=== PATIENT | female | born 1935 | race Caucasian/White ===

== ENCOUNTER 2016-09-06 10:36 | Inpatient (IN) | payer MEDICARE ==
[~2016-09-06] VITALS: Ht 172.7 cm; Wt 117.1 kg
[2016-09-06] VITALS (11 sets, daily range): BP systolic 106–179; BP diastolic 68–108
[~2016-09-06 10:36] MED LIST: ANAS1TAB PO; ASPI81TA9 PO; DILT240C32 PO; HYDR12.58 PO; HYDR25TA9 PO; LISI-334 PO; METO50TA2 PO; PRED20TA PO
--- NOTE | 2016-09-06 11:28 | PHYS DOC ---
General Chief Complaint: SHORTNESS OF BREATH Stated Complaint: DIFFICULTY BREATHING Time Seen by MD: 11:24 Source: patient, old records Exam Limitations: no limitations Problems: History of Present Illness Initial Comments Pt is 81/F to ED c/o SOB. Pt states that this am 0930 while watching TV she experienced sudden onset SOB. Sx were persistent, worse with exertion, similar to prior sx afib RVR so pt came for eval. She also reports that she didn't sleep well last night, she "just didn't feel right." No cp/diaphoresis/n/v/arm or neck sx/dizziness. No prearrival treatment, home meds are cartia XT 240mg and ASA 81mg. ED VS: 97.8, 127, 20, 165/89, 95% RA echo 12/2015 Left ventricle systolic function is normal. The Ejection Fraction is estimated at 55-60%. There is normal LV segmental wall motion. Transmitral Doppler flow pattern is Grade I-abnormal relaxation pattern. Trace aortic regurgitation. Mild mitral regurgitation. Trace to mild tricuspid regurgitation. The PA pressure was estimated at 26 mmHg. There is no evidence of significant pericardial effusion. Timing/Duration: constant, other (0930 today) Severity: severe Modifying Factors: worse with movement, improves with rest Associated Symptoms: malaise, shortness of breath, weakness Allergies: Coded Allergies: codeine (Unverified Allergy, Intermediate, VERY SICK, 12/01/13) Past Medical History Medical History: hypertension, other (atrial fibrillation, CKD stage 3, HTN, obesity, DJD, breast cancer s/p mastectomy/radiation) Surgical History: other (mastectomy, hip replacement) Family History Significant Family History: no pertinent family hx Social History Smoker: non-smoker Alcohol: none Drugs: none Review of Systems Constitutional: denies chills, denies diaphoresis, denies fever, malaise Respiratory: denies cough, shortness of breathdenies wheezing Cardiovascular: denies chest pain, edema palpitationsdenies syncope Gastrointestinal: denies diarrhea, denies nausea, denies vomiting Musculoskeletal: denies back pain, denies joint swelling, denies neck pain Psychiatric/Neurological: denies headache, denies numbness, denies paresthesia Hematologic/Lymphatic: see HPI Physical Exam General Appearance: mild distress (conversational dyspnea), obese Eyes: bilateral eye EOMI, bilateral eye PERRL, bilateral eye normal inspection Ear, Nose, Throat: normal ENT inspection, normal pharynx Neck: non-tender, supple Respiratory: normal breath sounds, no respiratory distress Cardiovascular: normal peripheral pulses, tachycardia Gastrointestinal: non tender, soft Back: no CVA tenderness, no vertebral tenderness Extremities: non-tender, normal inspection (2+ pitting LE edema) 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 PHYSICIAN: JASBIR HANDY DO REASON: sob PROCEDURE: PORTABLE CHEST 1V Portable chest, 09/06/2016: History: Shortness of breath Comparison is made to a study from 04/23/2016. The heart is moderately enlarged. The pulmonary vascularity is normal. No pulmonary infiltrates a are seen. There is no evidence of pleural fluid. IMPRESSION: 1. Moderate cardiomegaly. 2. No acute abnormality is detected. DICTATED AND SIGNED BY: RHETT RM MD DATE: 09/06/16 1221 CC: JASBIR HANDY DO; MAXIMILIANO RAGLAND ~ 1235: Pt resting comfortably feels much better since rate controlled. Dr Carl accepts pt for inpt management, cardiology has been paged. 1258: Pt discussed with cardiology [place], requests carotid/LE dopplers and echo. Pertinent labs: BUN 19, Cr 1.3, Trop < .017, BNP 3330 IMPRESSIONS: Atrial fibrillation with RVR Departure Time of Disposition: 12:38 Disposition: ADMITTED INPATIENT Diagnosis: Afib with RVR, HTN Condition: IMPROVED Additional Instructions: ICU admission Dr Carl is accepting. JASBIR HANDY DO Sep 06, 2016 11:28
[2016-09-06] MEDS ORDERED: DILTIAZEM 125 MG in IV DEXTROSE 5% 100 ML IV ONE (11:45)
[2016-09-06] MEDS ORDERED: ASPIRIN 81 MG TAB.CHEW PO ONE (11:45)
[2016-09-06] MEDS ORDERED: DILTIAZEM 25 MG/5 ML VIAL IVP ONE (11:45)
[2016-09-06 11:56] LABS: BASO # 0.1 x10^3/uL (0.0-0.2); BASO % 1 % (0-3); EOS # 0.1 x10^3/uL (0.0-0.7); EOS % 1 % (0-3); LYMPH # 1.2 x10^3/uL (1.0-4.8); LYMPH % 15 % (24-48); MEAN CORPUSCULAR HEMOGLOBIN 29 pg (25-35); MEAN CORPUSCULAR HGB CONC 33 g/dL (31-37); MEAN CORPUSCULAR VOLUME 89 fL (79-100); MONO # 0.7 x10^3/uL (0.0-1.1); MONO % 8 % (0-9); NEUT # 6.2 x10^3uL (1.8-7.7); NEUT % 75 % (31-73); PLATELET COUNT 213 x10^3/uL (140-400); RED BLOOD COUNT 5.15 x10^6/uL (3.50-5.40); WHITE BLOOD COUNT 8.3 x10^3/uL (4.0-11.0)
[2016-09-06 12:16] LABS: ALBUMIN 3.9 g/dL (3.4-5.0); ALBUMIN/GLOBULIN RATIO 1.1 (1.0-1.7); CALCIUM 9.6 mg/dL (8.5-10.1); CREATININE 1.3 mg/dL (0.6-1.0); GFR 39.2; POTASSIUM 3.8 mmol/L (3.5-5.1); TOTAL BILIRUBIN 0.9 mg/dL (0.2-1.0); TOTAL PROTEIN 7.4 g/dL (6.4-8.2)
--- NOTE | 2016-09-06 12:26 | RAD ---
Portable chest, 09/06/2016: History: Shortness of breath Comparison is made to a study from 04/23/2016. The heart is moderately enlarged. The pulmonary vascularity is normal. No pulmonary infiltrates a are seen. There is no evidence of pleural fluid. IMPRESSION: 1. Moderate cardiomegaly. 2. No acute abnormality is detected.
[2016-09-06] MEDS ORDERED: ONDANSETRON PF 4 MG/2 ML VIAL. IV PRN (13:15)
--- NOTE | 2016-09-06 13:27 | EKG ---
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
--- NOTE | 2016-09-06 13:27 | EKG ---
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
--- NOTE | 2016-09-06 14:15 | NUR ---
Pt admitted from ER via cart to ICU bed 3 for a diagnosis of Afib RVR. Pts daughter at bedside. Pt denies complaints of pain A&OX3. Pt on a Cardizem gtt at 5mg/hr. Oriented pt to unit, nurse, call light, and plan of care. V/u Stated. A full history obtained and full assessment completed. Will monitor and address orders.
[2016-09-06] MEDS ORDERED: DILTIAZEM IV PRN (15:45)
[2016-09-06] MEDS ORDERED: DEXTROSE 5% IV PRN (15:45)
--- NOTE | 2016-09-06 16:05 | NUR ---
Codie COSTELLO for Dr. Person called. INformed her of pts status, including vital signs HR and BP. Clarified order for Carotid Dopplers and Venous Dopplers, she confirmed with MD to DC both of these orders. orders received. Cardiology will see pt in am.
--- NOTE | 2016-09-06 16:25 | HP ---
ADMIT DATE: 09/06/2016 HISTORY OF PRESENT ILLNESS: The patient is an 81-year-old female patient, who came to the Emergency Room complaining of shortness of breath. Her symptoms started this morning at 9:30, while watching TV she experienced sudden onset of shortness of breath. Her symptoms persisted worse with exertion, similar to prior episode of atrial fibrillation with rapid ventricular response, so she came to us for evaluation. She also said that she did not sleep well last night. She just did not feel right; however, she denied any chest pain, diaphoresis, nausea, vomiting, arm or neck pain. Denied any dizziness or lightheadedness. She used to be on Cartia 240 mg once a day and aspirin 81 mg once a day. On arrival to the Emergency Room, she was found to be in atrial fibrillation with rapid ventricular response. Her heart rate was 127. Her blood pressure was also high and she was given a bolus of Cardizem 30 mg and continued on a Cardizem drip and was admitted to ICU to continue with the Cardizem drip and to consult the cardiology team. PAST MEDICAL HISTORY: Significant for hypertension, previous episode of atrial fibrillation with rapid ventricular response. She has also history of breast cancer. She has also known to have chronic kidney disease. PAST SURGICAL HISTORY: Significant for left total hip arthroplasty with revision, left mastectomy and bilateral cataract extraction with intraocular lens implant. ALLERGIES: She is allergic to CODEINE. MEDICATIONS: She is on aspirin 81 mg once a day and diltiazem hydrochloride 240 mg once a day. FAMILY HISTORY: She has 4 brothers and 3 sisters. One of her sisters at the age of 54 because of cancer. Father in his 70s. Mother in her 40s. SOCIAL HISTORY: She is . Her son lives with her. She has 6 sons and 5 daughters. She has never smoked, does not drink alcohol. 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 REVIEW OF SYSTEMS: The patient denies any blurring of vision, cataract, glaucoma or macular degeneration. Denied any earache, tinnitus or sensorineural deafness. Denied any nosebleeds, stuffy nose or postnasal drip. Denied any sore throat, sore tongue, toothache, hoarseness of voice or difficulty swallowing. Denied any nausea, vomiting, diarrhea or constipation. Denied any hematemesis, melena or hematochezia. Denied any dysuria, frequency or hematuria. Denied any chest pain. Did complain of shortness of breath, denied any cough, phlegm or hemoptysis. Denied any chills, rigors or fever. PHYSICAL EXAMINATION: GENERAL: On arrival to the Emergency Room; the patient was pale, but no jaundice, cyanosis, or thyromegaly. No jugular venous distention. No limb edema. VITAL SIGNS: Her heart rate was 127, blood pressure was 163/89, temperature was 97.8, respiratory rate 20, and oxygen saturation was 95% on room air. HEAD, EYES, EARS, NOSE AND THROAT: Showed normocephalic, atraumatic. NECK: Supple. HEART: Showed normal first and second heart sounds with no gallop, rub or murmur. CHEST: Clear to auscultation. No crepitation or rhonchi. ABDOMEN: Distended, soft, nontender. No guarding or rigidity. No organomegaly. All hernial orifices intact. Bowel sounds normal. NEUROLOGIC: She was awake, alert, responding appropriately. Cranial nerves intact. EXTREMITIES: She moves extremities without difficulty. She ambulates with a walker. LABORATORY DATA: Her lab work this morning showed a white cell count of 8300, hemoglobin 15, hematocrit 46, MCV 89 and platelet count 213,000 with normal manual differential. Her chemistry showed a serum sodium 145, potassium 3.8, chloride 108, bicarbonate 27, anion gap of 10, BUN 19, creatinine 1.3, estimated GFR was 39 mL per minute. Her glucose 135, calcium was 9.6, magnesium 2. Total bilirubin, AST, ALT, alkaline phosphatase were normal. Her beta natriuretic peptide was high at 3330, total protein 7.4, albumin 3.9. Her prothrombin time was 10.6, INR 1, aPTT was 26. Her chest x-ray showed the heart is moderately enlarged. Pulmonary vascularity is normal. No pulmonary infiltrates are seen. There is no evidence of pleural fluid. ASSESSMENT AND PLAN: In summary, this is an 81-year-old female patient, who came yet again with another episode of atrial fibrillation with rapid ventricular response. She was given a bolus of Cardizem 30 mg in the Emergency Room, was started on Cardizem drip to titrate to maintain heart rate within 80 to 90 beats per minute. We will consult the Cardiology team check two more sets of cardiac enzyme as well as fasting lipid profile. LAURIE GUTIERREZ MD DR: OZZIE/tom JOB#: [id number] / [id number]
[2016-09-06] MEDS: METOPROLOL TART IMMED RELEASE 25 MG TABLET PO SCH ×2 (16:37→21:00)
--- NOTE | 2016-09-06 18:47 | ACF ---
Admission Criteria Forms ATRIAL FIBRILLATION Clinical Indications for Admission to Inpatient Care (Place 'X' for any and all applicable criteria): Admission indicated for ANY ONE of the following(1)(2)(3)(4)(5) : [ ]I. Myocardial ischemia [X ]II. Dyspnea or hypoxemia [ ]III. Hemodynamic instability [ ]IV. Heart failure (e.g., pulmonary edema) (7) [ ]V. New-onset (less than 48 hours) atrial fibrillation with high risk for causing complications secondary to comorbidities (eg, symptomatic heart failure ) [ ]. Altered mental status [ ]VII. Syncope [ ]VIII. Patient has implantable cardioverter defibrillator that has fired more than once within past 24hr or needs immediate adjustment of settings that cannot be done other than in inpatient setting. (8) [ ]IX. Suspected accessory pathway (e.g., Phdyh-Ftuzlydga-Hrled syndrome) on ECG [ ]X. Recent systemic thromboembolism (eg, stroke) [ ]XI. Medication toxicity (e.g., digitalis) causing arrhythmia(9) [ ]XII. Underlying medical condition that necessitates inpatient care (e.g., thyrotoxicosis, pneumonia) (10) [ ]XIII. Continuous ECG monitoring is required for condition causing arrhythmia (e.g., severe hyperkalemia, hypokalemia, acid-base disturbance).(11)(12)(13) [ ]XIV. Initiation of antiarrhythmic drug therapy is needed in patient at high risk of adverse effects as indicated by ANY ONE of the following: [ ]a) Significant structural heart disease (e.g., reduced ejection fraction, congenital heart disease, valvular heart disease) [ ]b) Prolonged QT interval [ ]c) Underlying sinus node or atrioventricular conduction disturbances [ ]d) Need for treatment with antiarrhythmic drugs that have significant proarrhythmic potential (e.g., dofetilide, sotalol, procainamide) [ ]e) Patient whose sinus rhythm has never been observed on ECG [ ]XV. Intolerable symptoms despite optimal outpatient treatment [ ]XVI. Elective or urgent cardioversion that cannot be performed on outpatient basis or during observation care. [A] (Use also Atrial Fibrillation: Observation Care ) as appropriate.(14) [ ]XVII.Contraindications and/or Inappropriate clinical situations for Observational Care in patients with Atrial Fibrillation, when ANY ONE of the following is required: [ ]a) Patient with High risk of cardiac embolism (e.g, patients with previous cardiac embolism, LVEF < 40%, age >75 and patients with prosthetic valve) 18 [ ]b) Patient with Moderate risk including DM patient, CAD and patient aged 65-75 18 [ ]c) Patient with any change in cardiac biomarker especially troponin should be managed as high risk in an inpatient setting 19 [ ]d) Physician judgement irrespective of ECG and other diagnostic findings 20 [ ]XVIII.General contraindications and/or Inappropriate clinical situations for Observational Care in patients with Atrial Fibrillation, when ANY ONE of the following is required: [ ]a) Prediction of prolongation of LOS based on ANY ONE of the following may be considered as a contraindication for observational care 2, 3, 4, 5, 6, 7, 8, 9, 10, 11 [ ]i) Age > 65 yrs. [ ]ii) Patient arriving by ambulance [ ]iii) Patient with high acuity [ ]iv) Patient requiring vital sign monitoring [ ]v) Patient on IV medication [ ]b) Systolic blood pressures 180mmHg 3,12 [ ]c) Patient with altered mental status including delirium and other alteration of consciousness3 [ ]d) Patient whose discharge disposition will be to a long term home or rehabilitation home should not be managed in Emergency Department Observation Unit. CMS rule requires 3 days hospital stay before such placement.3,13 [ ]e) Patient with failure to thrive due to broad array of etiologies 3,16,17 [ ]f) Inability to ambulate 3,14 Extended stay beyond goal length of stay may be needed for (1)(25)(26): [ ]a) Unstable comorbidities [ ]b) Persistently uncontrolled atrial fibrillation or other arrhythmias [ ]c) Acute thromboembolic event (e.g., stroke, limb ischemia) [ ]d) Need for inpatient attainment of full anticoagulation The original [employer] content created by [employer] has been revised. The portions of the content which have been revised are identified through the use of italic text or in bold, and [facility] has neither reviewed nor approved the modified material. All other unmodified content is copyright [employer]. Please see references footnoted in the original [facility] edition 2016 Admission Criteria Met?: Yes JANENE MULLIGAN Sep 06, 2016 18:47
[2016-09-06] MEDS: ENOXAPARIN ** NOTE DOSE ** SYRINGE SQ SCH (20:51)
[2016-09-06 21:17] LABS: BACTERIA,URINE MANY /HPF (0-FEW); BILIRUBIN,URINE NEG (NEG); CLARITY,URINE CLOUDY; COLOR,URINE YELLOW; GLUCOSE,URINE NEG (NEG); NITRITE,URINE POS (NEG); SQUAMOUS EPITHELIAL CELL,UR MANY /LPF; UROBILINOGEN,URINE 2 mg/dL (0.2 mg/dL)
[2016-09-06] MEDS ORDERED: DILTIAZEM 125 MG in IV DEXTROSE 5% 100 ML IV PRN (22:56)
[2016-09-07] VITALS (16 sets, daily range): BP systolic 114–141; BP diastolic 68–88
[2016-09-07 06:44] LABS: BASO # 0.1 x10^3/uL (0.0-0.2); BASO % 1 % (0-3); EOS # 0.2 x10^3/uL (0.0-0.7); EOS % 3 % (0-3); HEMATOCRIT 40.6 % (36.0-47.0); HEMOGLOBIN 13.3 g/dL (12.0-15.5); LYMPH # 1.9 x10^3/uL (1.0-4.8); LYMPH % 23 % (24-48); MEAN CORPUSCULAR HEMOGLOBIN 29 pg (25-35); MEAN CORPUSCULAR HGB CONC 33 g/dL (31-37); MEAN CORPUSCULAR VOLUME 88 fL (79-100); MONO # 0.8 x10^3/uL (0.0-1.1); MONO % 10 % (0-9); NEUT # 5.2 x10^3uL (1.8-7.7); NEUT % 63 % (31-73); PLATELET COUNT 205 x10^3/uL (140-400); RED CELL DISTRIBUTION WIDTH 14.2 % (11.5-14.5); WHITE BLOOD COUNT 8.2 x10^3/uL (4.0-11.0)
[2016-09-07 06:55] LABS: CALCIUM 9.3 mg/dL (8.5-10.1); CREATININE 1.2 mg/dL (0.6-1.0); POTASSIUM 3.7 mmol/L (3.5-5.1)
--- NOTE | 2016-09-07 07:35 | NUR ---
PT still in afib this am. Pt is able to verbalize understanding fo poc. PT is on 5mg of cardizem IV. Rajan Clolado RN
[2016-09-07] MEDS: ENOXAPARIN ** NOTE DOSE ** SYRINGE SQ SCH (07:53)
[2016-09-07] MEDS: METOPROLOL TART IMMED RELEASE 25 MG TABLET PO SCH ×2 (07:54→21:12)
--- NOTE | 2016-09-07 08:48 | PDOC2 ---
FLAKITA DE LEON CHILD SUPPORT OFFICER 09/07/16 0848: CONSULT Date of Admission DATE: 09/07/16 TIME: 08:38 Reason for Consult: afib History of Present Illness The patient is an 80-year-old woman who presented to the hospital in the setting of sudden onset shortness of breath and palpitations. She was found to be in atrial fibrillation with RVR. She was admitted in Apr 2016 with atrial fibrillation and reports her symptoms are the same. She was discharged with aspirin and cardizem in April and is presumably on the same medications though she says she is unable to remember. She is currently in atrial fibrillation with controlled ventricular response. She currently remains on cardizem IV. At baseline, she remains a NYHA functional class 2-3. She is able to do most activities of daily living without any significant limitations, but does require some help with bathing, grocery shopping as well as other activities around the house. She uses a walker to ambulate around the house. She denies any instability or falls, however. She denies any chest pain, dyspnea, congestive symptoms such as orthopnea, PND or significant lower extremity edema. She does report some swelling at the end of the night, improved in the am. She denies any other complaints currently. Her son/ daughter are at bedside and denies any other issues. Past Medical History Past Medical History echo 12/2015 Left ventricle systolic function is normal. The Ejection Fraction is estimated at 55-60%. There is normal LV segmental wall motion. Transmitral Doppler flow pattern is Grade I-abnormal relaxation pattern. Trace aortic regurgitation. Mild mitral regurgitation. Trace to mild tricuspid regurgitation. The PA pressure was estimated at 26 mmHg. There is no evidence of significant pericardial effusion. PAST MEDICAL HISTORY: 1. Hypertension. 2. Breast cancer status post radiation. 3. Obesity. 4. Palpitations / paroxysmal atrial fibrillation 5. degenerative joint disease Past Surgical History Past Surgical History mastectomy, joint replacement, cataract surgery with lens implant Family History Family History non contributory Social History Social History The patient lives with her son. Denies any excessive alcohol use. Denies any smoking. She enjoys going to the [employer] [place]. Current Medications Current Medications Diltiazem HCl/ Dextrose (Cardizem) 125 ml @ 0 mls/hr 1X ONCE IV Last administered on 09/06/16t 12:06; Start 09/06/16 at 11:45; Stop 09/06/16 at 11:46 ; Status DC Diltiazem HCl (Cardizem) 30 mg 1X ONCE IVP Last administered on 09/06/16 12: 03; Start 09/06/16 at 11:45; Stop 09/06/16 at 11:46; Status DC Aspirin (Children'S Aspirin) 324 mg 1X ONCE PO Last administered on 09/06/16 11:43; Start 09/06/16 at 11:45; Stop 09/06/16 at 11:46; Status DC Ondansetron HCl (Zofran) 4 mg PRN Q4HRS PRN IV NAUSEA/VOMITING; Start 09/06/16 at 13:15; Stop 09/07/16 at 13:14 Enoxaparin Sodium 120 mg 120 mg Q12HR SQ Last administered on 09/07/16 07:53; Start 09/06/16 at 21:00 Diltiazem HCl/ Dextrose (Cardizem) 100 ml @ 0 mls/hr CONT PRN IV SEE I/O RECORD ; Start 09/06/16 at 15:45; Stop 09/06/16 at 22:56; Status DC Metoprolol Tartrate 25 mg 25 mg BID PO Last administered on 09/07/16 07:54; Start 09/06/16 at 16:30 Diltiazem HCl/ Dextrose (Cardizem) 125 ml @ 0 mls/hr CONT PRN IV SEE I/O RECORD ; Start 09/06/16 at 22:56 Active Scripts Active Diltiazem 24HR Cd (Diltiazem Hcl) 240 Mg Cap.er.24h 240 Mg PO DAILY Aspirin Ec (Aspirin) 81 Mg Tablet.dr 81 Mg PO DAILYWBKFT Allergies: Coded Allergies: codeine (Unverified Allergy, Intermediate, VERY SICK, 12/01/13) Review of System as per HPI or negative General: Alert, Oriented X3, Cooperative, No acute distress HEENT: Atraumatic, Mucous membr. moist/pink Lungs: Clear to auscultation Heart: Other (irregular rate and rhythm without gallops, clicks or rubs) Abdomen: Normal bowel sounds, Soft Extremities: No cyanosis, Normal pulses, Other (trace edema) Neuro: Normal speech, Strength at 5/5 X4 ext Psych/Mental Status: Mental status NL, Mood NL VITALS Vital Signs Date Time Temp Pulse Resp B/P Pulse Ox O2 Delivery O2 Flow Rate FiO2 09/07/16 08:00 76 22 136/80 94 Room Air 09/07/16 03:10 98.1 Labs Laboratory Tests Test 09/06/16 11:43 09/06/16 14:15 09/06/16 15:35 09/06/16 16:15 White Blood Count 8.3x10^3/uL (4.0-11.0) Red Blood Count 5.15x10^6/uL (3.50-5.40) Hemoglobin 15.0g/dL (12.0-15.5) Hematocrit 46.0% (36.0-47.0) Mean Corpuscular Volume 89fL (79-100) Mean Corpuscular Hemoglobin 29pg (25-35) Mean Corpuscular Hemoglobin Concent 33g/dL (31-37) Red Cell Distribution Width 14.0% (11.5-14.5) Platelet Count 213x10^3/uL (140-400) Neutrophils (%) (Auto) 75% (31-73) Lymphocytes (%) (Auto) 15% (24-48) Monocytes (%) (Auto) 8% (0-9) Eosinophils (%) (Auto) 1% (0-3) Basophils (%) (Auto) 1% (0-3) Neutrophils # (Auto) 6.2x10^3uL (1.8-7.7) Lymphocytes # (Auto) 1.2x10^3/uL (1.0-4.8) Monocytes # (Auto) 0.7x10^3/uL (0.0-1.1) Eosinophils # (Auto) 0.1x10^3/uL (0.0-0.7) Basophils # (Auto) 0.1x10^3/uL (0.0-0.2) Prothrombin Time 10.6SEC (9.4-11.4) Prothromb Time International Ratio 1.0 (0.9-1.1) Activated Partial Thromboplast Time 26SEC (23-33) Sodium Level 145mmol/L (136-145) Potassium Level 3.8mmol/L (3.5-5.1) Chloride Level 108mmol/L (98-107) Carbon Dioxide Level 27mmol/L (21-32) Anion Gap 10 (6-14) Blood Urea Nitrogen 19mg/dL (7-20) Creatinine 1.3mg/dL (0.6-1.0) Estimated GFR (Cockcroft-Gault) 39.2 BUN/Creatinine Ratio 15 (6-20) Glucose Level 135mg/dL (70-99) Calcium Level 9.6mg/dL (8.5-10.1) Magnesium Level 2.0mg/dL (1.8-2.4) Total Bilirubin 0.9mg/dL (0.2-1.0) Aspartate Amino Transf (AST/SGOT) 14U/L (15-37) Alanine Aminotransferase (ALT/SGPT) 21U/L (14-59) Alkaline Phosphatase 91U/L (46-116) Creatine Kinase 35U/L (26-192) Troponin I Quantitative < 0.017ng/mL (0-0.055) < 0.017ng/mL (0-0.055) GJ-Vjv-P-Type Natriuretic Peptide 3330pg/mL (0-449) Total Protein 7.4g/dL (6.4-8.2) Albumin 3.9g/dL (3.4-5.0) Albumin/Globulin Ratio 1.1 (1.0-1.7) Nasal Screen MRSA (PCR) Negative (Negative) Urine Collection Type Unknown Urine Color Yellow Urine Clarity Cloudy Urine pH 7.0 Urine Specific [place] 1.020 Urine Protein Trace (NEG-TRACE) Urine Glucose (UA) Negmg/dL (NEG) Urine Ketones (Stick) Negmg/dL (NEG) Urine Blood Trace (NEG) Urine Nitrite Pos (NEG) Urine Bilirubin Neg (NEG) Urine Urobilinogen Dipstick 2mg/dL (0.2 mg/dL) Urine Leukocyte Esterase Neg (NEG) Urine RBC 3-5/HPF (0-2) Urine WBC 1-4/HPF (0-4) Urine Squamous Epithelial Cells Many/LPF Urine Bacteria Many/HPF (0-FEW) Test 09/06/16 19:51 09/07/16 05:42 Troponin I Quantitative < 0.017ng/mL (0-0.055) White Blood Count 8.2x10^3/uL (4.0-11.0) Red Blood Count 4.60x10^6/uL (3.50-5.40) Hemoglobin 13.3g/dL (12.0-15.5) Hematocrit 40.6% (36.0-47.0) Mean Corpuscular Volume 88fL (79-100) Mean Corpuscular Hemoglobin 29pg (25-35) Mean Corpuscular Hemoglobin Concent 33g/dL (31-37) Red Cell Distribution Width 14.2% (11.5-14.5) Platelet Count 205x10^3/uL (140-400) Neutrophils (%) (Auto) 63% (31-73) Lymphocytes (%) (Auto) 23% (24-48) Monocytes (%) (Auto) 10% (0-9) Eosinophils (%) (Auto) 3% (0-3) Basophils (%) (Auto) 1% (0-3) Neutrophils # (Auto) 5.2x10^3uL (1.8-7.7) Lymphocytes # (Auto) 1.9x10^3/uL (1.0-4.8) Monocytes # (Auto) 0.8x10^3/uL (0.0-1.1) Eosinophils # (Auto) 0.2x10^3/uL (0.0-0.7) Basophils # (Auto) 0.1x10^3/uL (0.0-0.2) Sodium Level 146mmol/L (136-145) Potassium Level 3.7mmol/L (3.5-5.1) Chloride Level 110mmol/L (98-107) Carbon Dioxide Level 27mmol/L (21-32) Anion Gap 9 (6-14) Blood Urea Nitrogen 19mg/dL (7-20) Creatinine 1.2mg/dL (0.6-1.0) Estimated GFR (Cockcroft-Gault) 43.0 Glucose Level 94mg/dL (70-99) Calcium Level 9.3mg/dL (8.5-10.1) Images EKG - 1. atrial fibrillation with RVR, RBBB, LAFB, non specific changes 2. atrial fibrillation with CVR, RBBB, LAFB CXR - IMPRESSION: 1. Moderate cardiomegaly. 2. No acute abnormality is detected. Assessment/Plan 1. atrial fibrillation with RVR - now controlled response. MCOT worn for short period in Nov revealed 99% atrial burden. [id number] =4. Suggest change cardizem to oral, continue beta kentrell, await echo. PT eval for fall risk and add eliquis. OP follow up in 4-6 week for further evaluation. 2. hypertension - controlled on current meds 3. renal insufficiency, mild and stable. Problems: BRIA BENNETT MD 09/07/16 6047: CONSULT Allergies: Coded Allergies: codeine (Unverified Allergy, Intermediate, VERY SICK, 12/01/13) Assessment/Plan Patient seen and examined The patient is feeling better. Atrial fibrillation. Initially rapid ventricular response now controlled. Beta blockers as above. Will consider patient a candidate for anticoagulation with Eliquis. Echocardiogram pending. Outpatient follow-up 2 weeks post discharge. Controlled hypertension. Mild renal insufficiency. Thank you for allowing us to participate in the care of your patient. Problems: FLAKITA DE LEON APRN Sep 07, 2016 08:48 BRIA BENNETT MD Sep 07, 2016 16:47
[2016-09-07] MEDS: DILTIAZEM HCL 240 MG CAP.ER.24H PO SCH (09:53)
--- NOTE | 2016-09-07 11:15 | CARD ---
APPROVED REPORT EXAM: Two-dimensional and M-mode echocardiogram with Doppler and color Doppler. Other Information Quality : Technically Limited Technically limited study due to body habitus. INDICATION Atrial Fibrillation 2D DIMENSIONS RVDd3.1 (2.9-3.5cm)Left Atrium(2D)4.8 (1.6-4.0cm) IVSd1.3 (0.7-1.1cm)Aortic Root(2D)3.0 (2.0-3.7cm) LVDd5.1 (3.9-5.9cm)PWd1.2 (0.7-1.1cm) LVDs4.4 (2.5-4.0cm)FS (%) 25.0 % SV36.9 mlLVEF(%)50.0 (>50%) Aortic Valve AoV Peak Cb.103.0cm/sAoV VTI16.9cm AO Peak GR.4.2mmHgAO Mean GR.2mmHg RUBY (VTI)2.33cm2 Mitral Valve MV E Sbkwvjex80.4cm/sMV DECEL [id number] Tricuspid Valve TR P. Npycivsf328hc/sRAP [id number] TR Peak Gr.93ruYwFMQT77snBy LEFT VENTRICLE The left ventricle is normal size. There is mild concentric left ventricular hypertrophy. Left ventri tom systolic function is low normal. The Ejection Fraction is 50-55%. Wall motion not well visualized due to suboptimal image quality but grossly within normal limits. Tissue Doppler imaging reveals mod erate left ventricular diastolic dysfunction. RIGHT VENTRICLE The right ventricle is normal size. The right ventricular systolic function is normal. ATRIA The left atrium is moderately dilated. The right atrium size is normal. The interatrial septum is int act with no evidence for an atrial septal defect or patent foramen ovale as noted on 2-D or Doppler i maging. AORTIC VALVE The aortic valve is not well visualized. Doppler and Color Flow revealed no significant aortic regurg itation. There is no significant aortic valvular stenosis. MITRAL VALVE The mitral valve is normal in structure and function. There is no evidence of mitral valve prolapse. There is no mitral valve stenosis. Doppler and Color-flow revealed trace to mild mitral regurgitation . TRICUSPID VALVE The tricuspid valve is normal in structure and function. Doppler and Color Flow revealed trace tricus pid regurgitation. There is mild pulmonary hypertension. The PA pressure was estimated at 37 mmHg. Th ere is no tricuspid valve stenosis. PULMONIC VALVE Doppler and Color Flow revealed trace pulmonic valvular regurgitation. There is no pulmonic valvular stenosis. GREAT VESSELS The aortic root is normal in size. The ascending aorta is normal in size. The IVC is normal but colla pses <50% with inspiration. PERICARDIAL EFFUSION There is no evidence of significant pericardial effusion. Critical Notification Critical Value: No <Conclusion> Left ventricle systolic function is low normal. The Ejection Fraction is 50-55%. Wall motion not well visualized due to suboptimal image quality but grossly within normal limits. Tissue Doppler imaging reveals moderate left ventricular diastolic dysfunction. The left atrium is moderately dilated. The IVC is normal but collapses <50% with inspiration, suggestive of volume overload.
[2016-09-07] MEDS: APIXABAN 5 MG TABLET. PO SCH (14:14)
[2016-09-07] MEDS ORDERED: APIXABAN 5 MG TABLET. PO ONE (14:14)
[2016-09-07] MEDS ORDERED: ACETAMINOPHEN 325 MG TABLET PO PRN (14:15)
[2016-09-07] MEDS ORDERED: TEMAZEPAM 15 MG CAPSULE PO PRN (18:00)
[2016-09-07 18:56] LABS: BILIRUBIN,URINE NEG (NEG); CLARITY,URINE CLOUDY; COLOR,URINE AMBER; GLUCOSE,URINE NEG (NEG)
[2016-09-07 18:57] LABS: NITRITE,URINE POS (NEG); UROBILINOGEN,URINE 1 mg/dL (0.2 mg/dL)
[2016-09-07 19:01] LABS: BACTERIA,URINE MANY /HPF (0-FEW); RBC,URINE 0 /HPF (0-2); SQUAMOUS EPITHELIAL CELL,UR MANY /LPF
[2016-09-08] VITALS (9 sets, daily range): BP systolic 107–134; BP diastolic 59–88
--- NOTE | 2016-09-08 04:30 | PN ---
DATE: 09/07/2016 SUBJECTIVE: The patient was admitted yesterday with an episode of paroxysmal atrial fibrillation with rapid ventricular response. She was started on Cardizem drip and her heart rate was well controlled. She was switched to Diltiazem 240 mg once a day. She was started also on apixaban as well as metoprolol and we were planned for her to be discharged home. Unfortunately, she had had short runs of V-tach, consultation with the Cardiology team, they recommended for her to stay overnight for further observation. When I examined her, the patient was asymptomatic during the short periods of nonsustained ventricular tachycardia. PHYSICAL EXAMINATION: GENERAL: When I examined her, she looked well and was clearly in no apparent respiratory distress. She was pale, no jaundice, cyanosis, or thyromegaly. No jugular venous distension. No limb edema. VITAL SIGNS: Her heart rate was 80, blood pressure was 131/81, temperature was 98.2, respiratory rate 22, and oxygen saturation was 95%. HEAD, EYES, EARS, NOSE AND THROAT: Normocephalic, atraumatic. NECK: Supple. HEART: Showed normal first and second heart sounds with no gallop, rub or murmur. CHEST: Clear to auscultation. No crepitation or rhonchi. ABDOMEN: Distended, soft, nontender. No guarding or rigidity. No organomegaly. Hernial orifices intact. Bowel sounds normal. NEUROLOGIC: She is awake, alert, responding appropriately. Cranial nerves intact. She moves extremities without difficulty. She ambulates without assistance or assistive devices. LABORATORY DATA: Her lab work this morning showed that her white cell count was 98,200, hemoglobin 13, hematocrit 40, MCV 88 and platelet count of 205,000. Her chemistry showed serum sodium of , potassium 3.7, chloride 110, bicarbonate 27, anion gap of 9, BUN 19, creatinine 1.2, estimated GFR was 43 mL per minute. Her glucose was 94, calcium was 9.3. As of yesterday, her magnesium was 2. ASSESSMENT: Paroxysmal atrial fibrillation that responded very well to calcium channel kentrell as well as beta-kentrell; hypertension, well controlled; and mild chronic renal insufficiency. The patient has also history of breast cancer, status post mastectomy; morbid obesity; and degenerative joint disease. PLAN: We will continue with all her current medication and if she remains stable with no further episodes of nonsustained ventricular tachycardia, she can be discharged home. LAURIE GUTIERREZ MD DR: OZZIE/tom JOB#: [id number] / [id number]
[2016-09-08 06:08] LABS: CALCIUM 9.3 mg/dL (8.5-10.1); CREATININE 1.3 mg/dL (0.6-1.0); GFR 39.2; MAGNESIUM 1.9 mg/dL (1.8-2.4); POTASSIUM 3.8 mmol/L (3.5-5.1)
[2016-09-08] MEDS: APIXABAN 5 MG TABLET. PO SCH (08:39)
[2016-09-08] MEDS: DILTIAZEM HCL 240 MG CAP.ER.24H PO SCH (08:39)
[2016-09-08] MEDS: METOPROLOL TART IMMED RELEASE 25 MG TABLET PO SCH (08:39)
[2016-09-08] MEDS ORDERED: METO25TA9 PO (08:53)
[2016-09-08] MEDS ORDERED: DILT240C2 PO (08:54)
[2016-09-08] MEDS ORDERED: APIX5TAB PO (08:55)
--- NOTE | 2016-09-08 10:04 | NUR ---
Discharge Note: JODY COELLO [facility] Discharge instructions and discharge home medications reviewed with Patient, daughter, and son, and a copy given. All questions have been answered and understanding verbalized. The following instructions and handouts were given: EDUCATION regarding metoprolol, cardizem, eliquis, afib, and discharge instructions Discontinued lines and drains: Peripheral IV intact. Patient discharged to Home or Self Care with Family Member via Wheelchair Pt given instructions regarding new medications including side effects, complications, etc. Prescriptions for eliquid, metoprolol, and cardizem given to pt. Pt's daughter took all of pt belongings. Pt instructed to call unit if she has any questions regarding her new medications. Pt and daughter verbalized understanding of discharge instructions.
== END 2016-09-08 09:45 | disposition home or self-care (01) | DRG 310 ==
LOC: ER 10:36 → ICU 13:50
PROVIDERS: ADMIT Internal Medicine; ATTEND Internal Medicine
DX: I48.0 Paroxysmal atrial fibrillation (principal); I12.9 Hypertensive chronic kidney disease with stage 1 through stage 4 chronic kidney disease, or unspecified chronic kidney disease; I34.0 Nonrheumatic mitral (valve) insufficiency; N18.3 Chronic kidney disease, stage 3 (moderate); Z96.1 Presence of intraocular lens; Z96.642 Presence of left artificial hip joint; E66.01 Morbid (severe) obesity due to excess calories; M19.90 Unspecified osteoarthritis, unspecified site; Z79.82 Long term (current) use of aspirin; Z85.3 Personal history of malignant neoplasm of breast; Z90.10 Acquired absence of unspecified breast and nipple; Z92.3 Personal history of irradiation; Z98.41 Cataract extraction status, right eye; Z98.42 Cataract extraction status, left eye; Z68.39 Body mass index [BMI] 39.0-39.9, adult; Z88.5 Allergy status to narcotic agent
CPT/HCPCS: 36415; 71010; 80048; 80053; 81001; 82550; 83735; 83880; 84443; 84484; 85027; 85610; 85730; 87086; 87186; 87641; 93005; 93306; 96365; J1650; J3490; 99285-25

== ENCOUNTER → 2017-05-29 | Outpatient (CLI) | payer MEDICARE, BC ==
[2016-09-08 08:39] VITALS: BP 134/76
[~2017-05-29] MED LIST changes: +APIX5TAB3 PO; +ASPI-612 PO; -ASPI81TA9 PO; +DILT240C2 PO; +METO-239 PO; -METO50TA2 PO; +METO50TA6 PO
[2017-05-29 16:37] LABS: BASO # 0.1 x10^3/uL (0.0-0.2); BASO % 1 % (0-3); EOS # 0.2 x10^3/uL (0.0-0.7); EOS % 2 % (0-3); HEMATOCRIT 46.4 % (36.0-47.0); HEMOGLOBIN 15.7 g/dL (12.0-15.5); LYMPH # 1.9 x10^3/uL (1.0-4.8); LYMPH % 21 % (24-48); MEAN CORPUSCULAR HEMOGLOBIN 30 pg (25-35); MEAN CORPUSCULAR HGB CONC 34 g/dL (31-37); MEAN CORPUSCULAR VOLUME 89 fL (79-100); MONO # 0.9 x10^3/uL (0.0-1.1); MONO % 10 % (0-9); NEUT # 5.9 x10^3uL (1.8-7.7); NEUT % 66 % (31-73); PLATELET COUNT 265 x10^3/uL (140-400); RED BLOOD COUNT 5.21 x10^6/uL (3.50-5.40); WHITE BLOOD COUNT 9.1 x10^3/uL (4.0-11.0)
[2017-05-29 16:47] LABS: ALBUMIN 3.7 g/dL (3.4-5.0); ALBUMIN/GLOBULIN RATIO 0.9 (1.0-1.7); CALCIUM 9.7 mg/dL (8.5-10.1); CREATININE 1.5 mg/dL (0.6-1.0); GFR 33.2; POTASSIUM 3.7 mmol/L (3.5-5.1); TOTAL BILIRUBIN 0.5 mg/dL (0.2-1.0); TOTAL PROTEIN 7.6 g/dL (6.4-8.2)
== END | disposition home or self-care (01) ==
LOC: PMG 14:58
PROVIDERS: ATTEND Internal Medicine Cardiovascular Disease
DX: I48.91 Unspecified atrial fibrillation (principal); I12.9 Hypertensive chronic kidney disease with stage 1 through stage 4 chronic kidney disease, or unspecified chronic kidney disease; N18.3 Chronic kidney disease, stage 3 (moderate)
CPT/HCPCS: 36415; 80053; 85025

== ENCOUNTER 2017-07-05 08:49 | Emergency (ER) | payer MEDICARE, BC ==
[~2017-07-05] VITALS: Ht 170.2 cm; Wt 122.0 kg
[2017-07-05] MEDS: methylPREDNISolone SOD SUCC PF 125 MG/2 ML VIAL. IV ONE (09:39)
[2017-07-05 09:43] LABS: BASO # 0.1 x10^3/uL (0.0-0.2); BASO % 1 % (0-3); EOS # 0.2 x10^3/uL (0.0-0.7); EOS % 2 % (0-3); HEMATOCRIT 46.1 % (36.0-47.0); HEMOGLOBIN 15.7 g/dL (12.0-15.5); LYMPH # 1.4 x10^3/uL (1.0-4.8); LYMPH % 15 % (24-48); MEAN CORPUSCULAR HEMOGLOBIN 30 pg (25-35); MEAN CORPUSCULAR HGB CONC 34 g/dL (31-37); MEAN CORPUSCULAR VOLUME 89 fL (79-100); MONO # 0.8 x10^3/uL (0.0-1.1); MONO % 8 % (0-9); NEUT # 6.9 x10^3uL (1.8-7.7); NEUT % 74 % (31-73); PLATELET COUNT 265 x10^3/uL (140-400); RED BLOOD COUNT 5.16 x10^6/uL (3.50-5.40); RED CELL DISTRIBUTION WIDTH 13.2 % (11.5-14.5); WHITE BLOOD COUNT 9.3 x10^3/uL (4.0-11.0)
[2017-07-05] MEDS: IPRATRPIUM/ALBUTEROL 0.5/2.5MG 3 ML NEBU. NEB ONE (09:43)
--- NOTE | 2017-07-05 09:44 | EKG ---
[address] [address] Test Date: 2017-07-05 Test Time: 09:40:25 Pat Name: SHON COELLO Department: Room: Gender: F Copy Messenger: : [phone] Requested By: STEPHANIE SHIRLEY Order Number: [id number] Reading MD: Honorio Person MD Measurements Intervals [place] Rate: 49 P: MA: QRS: -88 QRSD: 118 T: -79 QT: 482 QTc: 434 Interpretive Statements atrial fibrillation rbbb NON-SPECIFIC ST/T CHANGES Electronically Signed On 07-09-2017 17:09:27 PRODUCTION ASSEMBLY OPERATOR by Honorio Person MD
[2017-07-05] MEDS: 0.9 % SODIUM CHLORIDE 10 ML DISP.SYRIN. IV ONE (09:45)
--- NOTE | 2017-07-05 10:03 | PHYS DOC ---
Past History Past Medical History: A-Fib, Hypertension Past Surgical History: Hip Replacement Smoking: Non-smoker Alcohol Use: None Drug Use: None Adult General Chief Complaint Chief Complaint: COUGH HPI HPI 82-year-old nonsmoking female patient complaining of productive cough with yellow sputum and shortness of breath and left lower chest wall pain during episodes of cough for the last 2 weeks with feeling cold without fever. Patient rated her pain 2/10 and states she was not able to sleep last night because of the cough appears. Patient complaining of diarrhea with 2 episodes of loose stool the day for the last 3 days. Patient complaining of generalized weakness and decrease of appetite. Patient had sick contacts at home. Patient states she was seen by her primary care physician couple days ago and had unremarkable labs and chest x-ray and started on amoxicillin without improvement of her condition. Review of Systems Review of Systems Constitutional: Denies fever , reports chills and generalized weakness Eyes: Denies change in visual acuity, redness, or eye pain [] HENT: Reports nasal congestion and sore throat [] Respiratory: Reports cough and shortness of breath [] Cardiovascular: No additional information not addressed in HPI [] GI: Denies abdominal pain, nausea, vomiting, bloody stools reports diarrhea : Denies dysuria or hematuria [] Musculoskeletal: Denies back pain or joint pain [] Integument: Denies rash or skin lesions [] Neurologic: Denies headache, focal weakness or sensory changes [] Endocrine: Denies polyuria or polydipsia [] All other systems were reviewed and found to be within normal limits, except as documented in this note. Current Medications Current Medications Current Medications Medications (Trade) Dose Ordered Sig/Parveen Start Time Stop Time Status Last Admin Dose Admin Albuterol/ Ipratropium (Duoneb) 3 ml 1X ONCE 07/05/17 09:45 07/05/17 09:46 DC 07/05/17 09:43 3 ML Methylprednisolone Sodium Succinate (SOLU-Medrol 125MG VIAL) 125 mg 1X ONCE 07/05/17 09:45 07/05/17 09:46 DC 07/05/17 09:39 125 MG Sodium Chloride (Normal Saline Flush) 10 ml 1X ONCE 07/05/17 09:45 07/05/17 09:46 DC Allergies Allergies Allergies Coded Allergies Type Severity Reaction Last Updated Verified codeine Allergy Intermediate VERY SICK 12/01/13 No Physical Exam Physical Exam Constitutional: Mild distress, non-toxic appearance. [] HENT: Normocephalic, atraumatic, bilateral external ears normal, oropharynx moist, no oral exudates, nose normal. [] Eyes: PERRLA, EOMI, conjunctiva normal, no discharge. [] Neck: Normal range of motion, no tenderness, supple, no stridor. [] Cardiovascular: Irregularly irregular, no murmur [] Lungs & Thorax: Mild wheezing and rhonchi bilaterally, no respiratory distress Abdomen: Bowel sounds normal, soft, no tenderness, no masses, no pulsatile masses. [] Skin: Warm, dry, no erythema, no rash. [] Back: No tenderness, no CVA tenderness. [] Extremities: No tenderness, no cyanosis, no clubbing, ROM intact, trace edema. [ ] Neurologic: Alert and oriented X 3, normal motor function, normal sensory function, no focal deficits noted. [] Psychologic: Affect normal, judgement normal, mood normal. [] Current Patient Data Vital Signs Vital Signs Date Time Temp Pulse Resp B/P (MAP) Pulse Ox O2 Delivery O2 Flow Rate FiO2 07/05/17 09:35 99 Nasal Cannula Lab Results Laboratory Tests Test 07/05/17 09:30 White Blood Count 9.3 x10^3/uL (4.0-11.0) Red Blood Count 5.16 x10^6/uL (3.50-5.40) Hemoglobin 15.7 g/dL (12.0-15.5) H Hematocrit 46.1 % (36.0-47.0) Mean Corpuscular Volume 89 fL (79-100) Mean Corpuscular Hemoglobin 30 pg (25-35) Mean Corpuscular Hemoglobin Concent 34 g/dL (31-37) Red Cell Distribution Width 13.2 % (11.5-14.5) Platelet Count 265 x10^3/uL (140-400) Neutrophils (%) (Auto) 74 % (31-73) H Lymphocytes (%) (Auto) 15 % (24-48) L Monocytes (%) (Auto) 8 % (0-9) Eosinophils (%) (Auto) 2 % (0-3) Basophils (%) (Auto) 1 % (0-3) Neutrophils # (Auto) 6.9 x10^3uL (1.8-7.7) Lymphocytes # (Auto) 1.4 x10^3/uL (1.0-4.8) Monocytes # (Auto) 0.8 x10^3/uL (0.0-1.1) Eosinophils # (Auto) 0.2 x10^3/uL (0.0-0.7) Basophils # (Auto) 0.1 x10^3/uL (0.0-0.2) EKG EKG [EKG interpreted by me. EKG at 0940 showed atrial fibrillation at rate of 49, left axis deviation, LVH, no acute ST and T wave abnormality] Radiology/Procedures Radiology/Procedures Cardiomegaly without infiltration[] Course & Med Decision Making Course & Med Decision Making Pertinent Labs and Imaging studies reviewed. (See chart for details) Evaluation of patient in ER showed 82-year-old female patient with complaining of cough and congestion and not feeling good for 2 weeks that did not get better with amoxicillin and Tessalon given by primary care physician. Patient had mild rhonchi and wheezing and felt better with treatment in ER. Patient had chronic renal insufficiency and atrial fibrillation with elevation of BNP without previous BNP to compare. Patient also had UTI and there treated with Rocephin in ER. Plan to give prescription of Bactrim and Medrol Dosepak and albuterol inhaler and Tussionex and instruction to stop taking Tessalon pain and amoxicillin. Potassium was 3.3 and patient instructed to take high potassium food. Dragon Disclaimer Dragon Disclaimer This electronic medical record was generated, in whole or in part, using a voice recognition dictation system. Departure Departure: Impression: Primary Impression: Upper respiratory infection Additional Impressions: Urinary tract infection Chronic atrial fibrillation Chronic renal insufficiency Congestive heart failure Hypokalemia Disposition: HOME, SELF-CARE (At 1127) Condition: IMPROVED Referrals: MAXIMILIANO RAGLAND (PCP) Patient Instructions: Heart Failure, Hypokalemia, Upper Respiratory Infection, Adult, Urinary Tract Infection Additional Instructions: Follow-up with your primary care physician in 2 or 3 days Take high potassium food Return if not getting better Stop taking home medication of amoxicillin and Tessalon gunnar Scripts Hydrocodone/Chlorphen P-Stirex (Tussionex Pennkinetic Susp) 115 Ml Haley.er.12h 5 ML PO BID Y for COUGH, #120 ML Prov: STEPHANIE SHIRLEY MD 07/05/17 Methylprednisolone (MEDROL) 4 Mg Tab.ds.pk 1 PKG PO UD, #1 PKG Prov: STEPHANIE SHIRLEY MD 07/05/17 Sulfamethoxazole/Trimethoprim (BACTRIM DS TABLET) 1 Each Tablet 1 TAB PO BID, #14 TAB Prov: STEPHANIE SHIRLEY MD 07/05/17 Albuterol Sulfate (PROAIR HFA INHALER) 8.5 Gm Hfa.aer.ad 2 PUFF INH PRN Q6HRS Y for SHORTNESS OF BREATH, #1 INHALER 0 Refills Prov: STEPHANIE SHIRLEY MD 07/05/17 Problem Qualifiers STEPHANIE SHIRLEY MD Jul 05, 2017 10:02
[2017-07-05 10:08] LABS: ALBUMIN 3.4 g/dL (3.4-5.0); ALBUMIN/GLOBULIN RATIO 0.9 (1.0-1.7); ALK PHOS 66 U/L (46-116); ALT (SGPT) 17 U/L (14-59); ANION GAP 9 (6-14); AST (SGOT) 15 U/L (15-37); BLOOD UREA NITROGEN 24 mg/dL (7-20); BUN/CREATININE RATIO 15 (6-20); CALCIUM 9.3 mg/dL (8.5-10.1); CARBON DIOXIDE 31 mmol/L (21-32); CHLORIDE 102 mmol/L (98-107); CREATINE KINASE 38 U/L (26-192); CREATININE 1.6 mg/dL (0.6-1.0); GFR 30.8; GLUCOSE 147 mg/dL (70-99); POTASSIUM 3.3 mmol/L (3.5-5.1); SODIUM 142 mmol/L (136-145); TOTAL BILIRUBIN 0.7 mg/dL (0.2-1.0); TOTAL PROTEIN 7.1 g/dL (6.4-8.2)
[2017-07-05 10:38] LABS: AMORPHOUS SEDIMENT,UR PRESENT /HPF; BACTERIA,URINE MANY /HPF (0-FEW); BILIRUBIN,URINE MOD (NEG); CLARITY,URINE CLOUDY; COLOR,URINE AMBER; GLUCOSE,URINE NEG (NEG); NITRITE,URINE POS (NEG); RBC,URINE RARE /HPF (0-2); SQUAMOUS EPITHELIAL CELL,UR MOD /LPF; UROBILINOGEN,URINE 1 mg/dL (0.2 mg/dL)
[2017-07-05] MEDS: cefTRIAXone IV Push 1 GM VIAL. IVP ONE (11:07)
[2017-07-05] MEDS ORDERED: HYDR115S2 PO (11:31)
[2017-07-05] MEDS ORDERED: SULF1TAB24 PO (11:31)
[2017-07-05] MEDS ORDERED: METH4TAB2 PO (11:31)
[2017-07-05] MEDS ORDERED: ALBU8.5H8 INH (11:31)
--- NOTE | 2017-07-05 15:24 | RAD ---
Portable chest, 07/05/2017: History: Cough Comparison is made to a study from 09/06/2016. The heart is enlarged. There is calcific plaquing of the aorta. The pulmonary vascularity is normal. No pulmonary infiltrates are seen. There is no evidence of pleural fluid. Degenerative changes are present the shoulders. IMPRESSION: 1. Cardiomegaly. 2. No acute cardiopulmonary abnormality is detected.
[2017-07-05 18:00] VITALS: BP 156/69
== END 2017-07-05 11:25 | disposition home or self-care (01) ==
LOC: ER 08:49
DX: J06.9 Acute upper respiratory infection, unspecified (principal); N39.0 Urinary tract infection, site not specified; I48.2 Chronic atrial fibrillation; I13.0 Hypertensive heart and chronic kidney disease with heart failure and stage 1 through stage 4 chronic kidney disease, or unspecified chronic kidney disease; N18.9 Chronic kidney disease, unspecified; I50.9 Heart failure, unspecified; E87.6 Hypokalemia; Z88.5 Allergy status to narcotic agent
CPT/HCPCS: 36415; 71045; 80053; 81001; 82553; 83880; 84484; 85025; 87086; 93005; 94640; 96374; 96375; 99285; J0696; J2930; J7620

== ENCOUNTER 2017-08-11 09:28 | Inpatient (IN) | payer MEDICARE, BC ==
[~2017-08-11] VITALS: Ht 170.2 cm; Wt 118.5 kg
[~2017-08-11 09:28] MED LIST changes: +ALBU8.5H8 INH; +HYDR115S2 PO; +METH4TAB2 PO; +SULF1TAB24 PO
--- NOTE | 2017-08-11 09:43 | PHYS DOC ---
Past History Past Medical History: A-Fib, Cancer, Hypertension Past Surgical History: Hip Replacement Smoking: Non-smoker Alcohol Use: None Drug Use: None Adult General Chief Complaint Chief Complaint: COUGH HPI HPI 82-year-old female patient with history of atrial fibrillation and CHF brought in by EMS because of cough. Patient states she has had chronic cough more than 2 months and seen by her primary care physician in this emergency room and treated with different antibiotics without improvement of her cough and complaining of productive cough with yellow sputum. Patient complaining of one episode of exertional shortness of breath this morning that lasts for a short time and resolved spontaneously. Patient also complaining of lower extremity edema for the last 4 days and seen by her primary care physician and treated with Lasix with improvement of edema but the pain is not getting better and has limited 14 because of leg edema. Patient complaining of chronic chills without fever, vomiting, dizziness, chest pain, palpitation, focal neuro deficit. Patient has history of atrial fibrillation and taking Eliquis. Review of Systems Review of Systems Constitutional: Denies fever, reports chills [] Eyes: Denies change in visual acuity, redness, or eye pain [] HENT: Denies nasal congestion or sore throat [] Respiratory: Reports cough and shortness of breath [] Cardiovascular: No additional information not addressed in HPI [] GI: Denies abdominal pain, vomiting, bloody stools or diarrhea, reports nausea[ ] : Denies dysuria or hematuria [] Musculoskeletal: Denies back pain, reports joint pain [] Integument: Denies rash or skin lesions [] Neurologic: Denies headache, focal weakness or sensory changes [] Endocrine: Denies polyuria or polydipsia [] All other systems were reviewed and found to be within normal limits, except as documented in this note. Allergies Allergies Allergies Coded Allergies Type Severity Reaction Last Updated Verified codeine Allergy Intermediate VERY SICK 12/01/13 No Physical Exam Physical Exam Constitutional: Well developed, well nourished, mild distress, non-toxic appearance. [] HENT: Normocephalic, atraumatic, bilateral external ears normal, oropharynx moist, no oral exudates, nose normal. [] Eyes: PERRLA, EOMI, conjunctiva normal, no discharge. [] Neck: Normal range of motion, no tenderness, supple, no stridor. [] Cardiovascular: Irregularly irregular heartbeat with tachycardia , no murmur [] Lungs & Thorax: Bilateral breath sounds clear to auscultation [] Abdomen: Bowel sounds normal, soft, no tenderness, no masses, no pulsatile masses. [] Skin: Warm, dry, no erythema, no rash. [] Back: No tenderness, no CVA tenderness. [] Extremities: No tenderness, no cyanosis, no clubbing, ROM intact, 1+ bilateral lower extremity edema edema. [] Neurologic: Alert and oriented X 3, normal motor function, normal sensory function, no focal deficits noted. [] Psychologic: Affect normal, judgement normal, mood normal. [] EKG EKG EKG interpreted by me. EKG at 0 942 showed atrial fibrillation at rate of 104 with RVR, PVCs, abnormal right superior axis deviation, right bundle branch block, RVH with repolarization, no acute distress and T-wave elevation[] Radiology/Procedures Radiology/Procedures [] [address] [address] IMAGING REPORT Signed PATIENT: JODY COELLO ACCOUNT: [id number] : 1935 LOCATION: ER AGE: 82 SEX: F EXAM STATUS: REG ER ORD. PHYSICIAN: STEPHANIE SHIRLEY MD REASON: shortness of breath PROCEDURE: PORTABLE CHEST 1V Portable AP view CXR: Clinical indications: Cough with shortness of breath. Comparison: December 03, 2017. Findings: No acute lung infiltrate or pleural effusion or pulmonary edema or lung mass or pneumothorax is seen. The heart size is prominent but stable. The pulmonary vasculature, mediastinum and both yandel are stable. Impression: No acute radiographic abnormality is seen. DICTATED AND SIGNED BY: YOLANDA JONES MD DATE: 08/11/17 1030 CC: STEPHANIE SHIRLEY MD; MAXIMILIANO RAGLAND Course & Med Decision Making Course & Med Decision Making Pertinent Labs and Imaging studies reviewed. (See chart for details) Evaluation of patient in ER showed 81-year-old female patient with complaining of an episode of shortness of breath today and chronic cough for 2 months and lower extremity edema for 4 days. Had atrial fibrillation with RVR and treated with Lopressor 5 mg IV(Cardizem was not used because of shortage of Cardizem bolus and IV) and her heart rate dropped to 80s. Patient had potassium of 2.6 and IV potassium was started. Patient had elevation of white count and lactic acid was started. UA is pending. Plan to admit patient with diagnosis of atrial fibrillation and RVR and CHF and hyperkalemia. Dr Carl informed at 1044 and accepted admission. Patient and her family informed about plan of care. UA and lower extremity ultrasound results is pending . Dragon Disclaimer Dragon Disclaimer This electronic medical record was generated, in whole or in part, using a voice recognition dictation system. Departure Departure: Impression: Primary Impression: Atrial fibrillation with RVR Additional Impressions: Hypokalemia Renal insufficiency Chronic cough CHF (congestive heart failure) Edema extremities Disposition: ADMITTED INPATIENT (At 1045) Admitting Physician: Nabil Carl Referrals: MAXIMILIANO RAGLAND (PCP) Problem Qualifiers STEPHANIE SHIRLEY MD Aug 11, 2017 09:43
[2017-08-11] MEDS ORDERED: METOPROLOL TARTRATE 5 MG/5 ML VIAL. IV ONE (10:00)
[2017-08-11 10:12] LABS: BASO # 0.1 x10^3/uL (0.0-0.2); BASO % 1 % (0-3); EOS % 0 % (0-3); HEMATOCRIT 44.7 % (36.0-47.0); HEMOGLOBIN 15.2 g/dL (12.0-15.5); LYMPH # 1.1 x10^3/uL (1.0-4.8); LYMPH % 8 % (24-48); MEAN CORPUSCULAR HEMOGLOBIN 30 pg (25-35); MEAN CORPUSCULAR HGB CONC 34 g/dL (31-37); MEAN CORPUSCULAR VOLUME 88 fL (79-100); MONO # 1.5 x10^3/uL (0.0-1.1); MONO % 10 % (0-9); NEUT % 82 % (31-73); PLATELET COUNT 322 x10^3/uL (140-400); RED BLOOD COUNT 5.06 x10^6/uL (3.50-5.40); RED CELL DISTRIBUTION WIDTH 13.1 % (11.5-14.5); WHITE BLOOD COUNT 14.7 x10^3/uL (4.0-11.0)
[2017-08-11 10:31] LABS: ALBUMIN 3.3 g/dL (3.4-5.0); ALBUMIN/GLOBULIN RATIO 0.8 (1.0-1.7); ALK PHOS 62 U/L (46-116); ALT (SGPT) 15 U/L (14-59); ANION GAP 6 (6-14); AST (SGOT) 15 U/L (15-37); BLOOD UREA NITROGEN 29 mg/dL (7-20); BUN/CREATININE RATIO 19 (6-20); CALCIUM 9.4 mg/dL (8.5-10.1); CARBON DIOXIDE 36 mmol/L (21-32); CHLORIDE 96 mmol/L (98-107); CREATININE 1.5 mg/dL (0.6-1.0); GFR 33.2; GLUCOSE 136 mg/dL (70-99); MAGNESIUM 1.8 mg/dL (1.8-2.4); SODIUM 138 mmol/L (136-145); TOTAL BILIRUBIN 1.7 mg/dL (0.2-1.0); TOTAL PROTEIN 7.2 g/dL (6.4-8.2)
[2017-08-11 10:32] LABS: POTASSIUM 2.6 mmol/L (3.5-5.1)
--- NOTE | 2017-08-11 10:33 | RAD ---
Portable AP view CXR: Clinical indications: Cough with shortness of breath. Comparison: December 03, 2017. Findings: No acute lung infiltrate or pleural effusion or pulmonary edema or lung mass or pneumothorax is seen. The heart size is prominent but stable. The pulmonary vasculature, mediastinum and both yandel are stable. Impression: No acute radiographic abnormality is seen.
--- NOTE | 2017-08-11 10:43 | EKG ---
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
[2017-08-11] MEDS ORDERED: POTASSIUM CHLORIDE 20MEQ 100 ML IV ONE (10:45)
--- NOTE | 2017-08-11 11:57 | RAD ---
Right leg venous Doppler study: Clinical indications: Right leg swelling and pain. Findings: Duplex sonography (including sanchez scale evaluation and color flow and waveform spectral analysis) of the proximal aspect of the greater saphenous vein and proximal aspect of the profunda femoral vein and the entire length of the common femoral and superficial femoral and popliteal veins and the tibioperoneal trunk and the proximal aspect of the posterior tibial and peroneal veins of the right leg was performed. Normal compressibility, augmentation of color Doppler flow after calf compression, and respiratory variation of Doppler flow is seen. Thus, there are no sonographic findings of deep venous thrombosis within these veins. Impression: There are no sonographic findings of deep venous thrombosis within the veins discussed above of the right lower extremity. Left leg venous Doppler study: Clinical indications: Left leg swelling and pain. Findings: Duplex sonography (including sanchez scale evaluation and color flow and waveform spectral analysis) of the proximal aspect of the greater saphenous vein and the proximal aspect of the profunda femoral vein and the entire length of the common femoral and superficial femoral and popliteal veins and the tibioperoneal trunk and the proximal aspect of the posterior tibial and peroneal veins of the left leg was performed. Normal compressibility, augmentation of color Doppler flow after calf compression, and respiratory variation of Doppler flow is seen. Thus, there are no sonographic findings of deep venous thrombosis within these veins. Impression: There are no sonographic findings of deep venous thrombosis within the veins discussed above of the left lower extremity.
[2017-08-11 12:05] LABS: BACTERIA,URINE MANY /HPF (0-FEW); BILIRUBIN,URINE NEG (NEG); CLARITY,URINE HAZY; COLOR,URINE AMBER; GLUCOSE,URINE NEG (NEG); NITRITE,URINE POS (NEG); RBC,URINE RARE /HPF (0-2); SQUAMOUS EPITHELIAL CELL,UR MOD /LPF; UROBILINOGEN,URINE 2 mg/dL (0.2 mg/dL)
[2017-08-11 12:13] VITALS: BP 125/83
[2017-08-11] MEDS ORDERED: METO25TA4 PO (12:19)
[2017-08-11] MEDS ORDERED: FURO20TA3 PO (12:19)
[2017-08-11] MEDS ORDERED: DILT240C66 PO (12:19)
[2017-08-11] MEDS ORDERED: POTA10TA10 PO (12:19)
[2017-08-11] MEDS ORDERED: HYDR50TA6 PO (12:19)
[2017-08-11] MEDS ORDERED: POTASSIUM CHLORIDE 20 MEQ/15 ML ORAL LIQUID. PO ONE ×3 (12:30→15:30)
--- NOTE | 2017-08-11 12:50 | NUR ---
Pt Viki Oneal admitted to room 125 with complaints of leg pain, SOA and cough. Pt is in AFib with frequent PVCs. Family at bedside with patient. Bed is low and locked. C/o pain in LE. Pt alert and oriented but forgetful. Will continue to monitor.
[2017-08-11] MEDS: POTASSIUM CHLORIDE 20 MEQ/15 ML ORAL LIQUID. PO ONE ×2 (13:30→14:00)
[2017-08-11 14:42] VITALS: BP 97/75
[2017-08-11] MEDS ORDERED: ALBUTEROL SULFATE 2.5 MG/3 ML NEBU. NEB PRN (15:30)
--- NOTE | 2017-08-11 15:39 | NUR ---
Cardiology consult called into [facility] cardiology to Susu. Dr Joel wind farm operations manager.
[2017-08-11] MEDS: cefTRIAXone IV Push 1 GM VIAL. IVP SCH (16:14)
[2017-08-11 16:18] LABS: HEMATOCRIT 42.2 % (36.0-47.0); HEMOGLOBIN 14.3 g/dL (12.0-15.5); RED BLOOD COUNT 4.74 x10^6/uL (3.50-5.40); WHITE BLOOD COUNT 14.1 x10^3/uL (4.0-11.0)
[2017-08-11 16:31] LABS: ALBUMIN 3.1 g/dL (3.4-5.0); ALBUMIN/GLOBULIN RATIO 0.8 (1.0-1.7); CALCIUM 9.1 mg/dL (8.5-10.1); CREATININE 1.5 mg/dL (0.6-1.0); GFR 33.2; POTASSIUM 3.9 mmol/L (3.5-5.1); TOTAL BILIRUBIN 1.4 mg/dL (0.2-1.0); TOTAL PROTEIN 6.9 g/dL (6.4-8.2)
--- NOTE | 2017-08-11 16:53 | HP ---
ADMIT DATE: 08/11/2017 HISTORY OF PRESENT ILLNESS: The patient is an 82-year-old female patient who came to the Emergency Room basically complaining of cough. She said that her cough has been going on for more than 2 months now, seen by her primary care physician. She has received treatment with different antibiotic without improvement. The cough has recently become productive with yellow sputum. She also had one episode of exertional shortness of breath this morning that lasted for a short time and resolved spontaneously. She was complaining of lower extremity edema for the last 4 days and seen by her primary care physician, treated with Lasix with improvement of her swelling, but the pain is not getting any better, has limited her mobility. The patient also did complain of chronic chills without fever, vomit. Denied, however, any chest pain. She was evaluated in the Emergency Room and was found to have leukocytosis and severe hypokalemia and her D-dimer was slightly elevated also. She has had a chest x-ray, which showed no acute radiographic abnormality seen and because of elevated D-dimer, she has showed that there are no sonographic findings of deep vein thrombosis within the veins, both right and lower extremity. The patient was admitted with atrial fibrillation with rapid ventricular response, hypokalemia, renal insufficiency, chronic cough, congestive heart failure and lower extremity edema. PAST MEDICAL HISTORY: Significant for hypertension, atrial fibrillation with rapid ventricular response. She has a history of breast cancer and known to have chronic kidney disease. PAST SURGICAL HISTORY: Significant for left total hip arthroplasty with revision, left mastectomy and bilateral cataract extraction with intraocular lens implant. ALLERGIES: She is allergic to CODEINE. MEDICATIONS: She is currently on following medications: She is on apixaban 5 mg twice a day, diltiazem for Cartia XT 240 mg twice a day, furosemide 20 mg once a day, hydrochlorothiazide 25 mg daily, metoprolol tartrate 25 mg twice a day, potassium chloride 10 mEq daily. FAMILY HISTORY: She has 4 brothers and 3 sisters, one of her sisters at the age of 54 because of cancer. Father in his 70s and mother in her 40s. SOCIAL HISTORY: She is . Her son lives with her. She has 6 sons and 5 daughters. She has never smoked, does not drink alcohol. 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 REVIEW OF SYSTEMS: The patient denied any blurring vision, has bilateral cataract extraction but denied any glaucoma or macular degeneration. Denied any earache, tinnitus or sensorineural deafness. Denied any nosebleeds, stuffy nose or postnasal drip. Denied any sore throat, sore tongue, toothache, hoarseness of voice or difficulty swallowing. Denied any nausea, vomiting, diarrhea or constipation. Denied any hematemesis, melena or hematochezia. Denied any dysuria, frequency or hematuria. She denied any chest pain. Did complain of shortness of breath, cough with yellow sputum. Did complain of chills, but denied any rigors or fever. PHYSICAL EXAMINATION: GENERAL: On arrival to the Emergency Room, the patient looked well and was clearly in no apparent respiratory distress, slightly pale, but no jaundice, cyanosis, or thyromegaly. No jugular venous distension. No limb edema. VITAL SIGNS: Her heart rate was 108, irregularly irregular; blood pressure 126/61; temperature was 99.3; respiratory rate was 18 and oxygen saturation was 97% on room air. HEAD, EYES, EARS, NOSE AND THROAT: Showed normocephalic, atraumatic. NECK: Supple. HEART: Showed normal first and second heart sounds. No gallop, rub or murmur. CHEST: Clear to auscultation. No crepitation or rhonchi. ABDOMEN: Distended, soft, nontender. No guarding or rigidity. No organomegaly. All hernial orifices intact. Bowel sounds normal. NEUROLOGIC: She was awake, alert, responding appropriately. Cranial nerves intact. She moves extremities without difficulty. She apparently ambulates with a walker. She requires assistance with bathing at home; however, she managed to dress and undress on her own and makes her own breakfast. Her son basically assists to do shopping and cooking. Her daughter also assists with that. LABORATORY DATA AND IMAGING: In the Emergency Room showed that her white cell count was 14,700, hemoglobin 15.2, hematocrit 45, MCV 88 and platelet count 322,000. The manual differential showed 82% polymorphs, 8% lymphocytes, 10% monocytes. Her prothrombin time was 11.1, INR 1.1. D-dimer was 0.53. Her serum sodium was 138, potassium 2.6, chloride 96, bicarbonate 36, anion gap of 6, BUN 29, creatinine 1.5, estimated GFR was ____ mL per minute. Her glucose 136, calcium was 9.4, magnesium was 1.8. Total bilirubin is 1.7. AST, ALT, alkaline phosphatase were normal. Her beta natriuretic peptide was 1491. Total protein was 7.2, albumin 3.3. Her first set of cardiac enzymes showed troponin to be less than 0.017. Urinalysis showed the urine was hazy, martínez in color with a pH of 6.5, specific gravity of 1.020. There is trace of protein, negative for glucose, ketones, blood is positive for nitrite. The urine was negative for bilirubin and leukocyte esterase. There are rare RBCs, 5-10 WBCs, too many bacteria. Her chest x-ray showed that no acute lung infiltrate or pleural effusion, no pulmonary edema or lung mass or pneumothorax is seen. The heart size is prominent, but stable. Pulmonary vascularity, vasculature, mediastinum and both yandel are stable with no acute radiographic abnormalities seen. Given his slightly elevated D-dimer, she underwent venous Doppler ultrasound of both lower extremities, which basically showed no sonographic finding of deep vein thrombosis within the veins of the right and left lower extremity. The patient was admitted with atrial fibrillation with rapid ventricular response, although in reality, her heart rate really not seemed to be reasonably controlled. She has hypokalemia, likely due to the fact that she is on both Lasix and hydrochlorothiazide with very little potassium supplement. She has chronic renal insufficiency that seems to be chronic and she has chronic cough that has been going on for almost 2 months now. She is not on any JOSE D inhibitors that might be contributing to this. She does not seem to be at least clinically and radiologically in congestive heart failure, although she carries that diagnosis before. She apparently has swelling of both extremities and that is why she is on both diuretics and that resulted in severe hypokalemia. She has also what seems to be probably urinary tract infection as he has too many bacteria in her urine with positive nitrite. PLAN: My plan is to replenish her potassium. I wonder whether she has any treatment with inhalers and perhaps proton pump inhibitors ____ the cause of her chronic cough. I will definitely consult the health information manager to see her if she might require an echocardiogram to evaluate her left ventricular systolic function. LAURIE GUTIERREZ MD DR: OZZIE/tom JOB#: [id number] / [id number]
[2017-08-11] MEDS ORDERED: POTASSIUM CHLORIDE 20 MEQ TABLET.ER. PO SCH (17:30)
[2017-08-11 19:49] VITALS: BP 149/79
[2017-08-11] MEDS: LACTOBACILLUS RHAMNOSUS GG 1 CAPSULE. PO SCH (20:01)
[2017-08-11] MEDS: APIXABAN 5 MG TABLET. PO SCH (20:02)
[2017-08-11] MEDS: BUDESONIDE 0.5 MG/2 ML NEBU NEB SCH (20:29)
[2017-08-11] MEDS ORDERED: METOPROLOL TART IMMED RELEASE 25 MG TABLET PO SCH (21:00)
[2017-08-11 23:00] VITALS: BP 86/54
[2017-08-12 06:28] VITALS: BP 102/66
[2017-08-12 06:32] LABS: BASO # 0.1 x10^3/uL (0.0-0.2); BASO % 1 % (0-3); EOS # 0.1 x10^3/uL (0.0-0.7); EOS % 1 % (0-3); HEMATOCRIT 42.6 % (36.0-47.0); HEMOGLOBIN 13.8 g/dL (12.0-15.5); LYMPH % 17 % (24-48); MEAN CORPUSCULAR HEMOGLOBIN 30 pg (25-35); MEAN CORPUSCULAR HGB CONC 33 g/dL (31-37); MEAN CORPUSCULAR VOLUME 92 fL (79-100); MONO # 1.3 x10^3/uL (0.0-1.1); MONO % 12 % (0-9); NEUT # 8.1 x10^3uL (1.8-7.7); NEUT % 70 % (31-73); PLATELET COUNT 273 x10^3/uL (140-400); RED BLOOD COUNT 4.66 x10^6/uL (3.50-5.40); RED CELL DISTRIBUTION WIDTH 12.7 % (11.5-14.5); WHITE BLOOD COUNT 11.6 x10^3/uL (4.0-11.0)
[2017-08-12 06:39] LABS: ALBUMIN 2.8 g/dL (3.4-5.0); ALBUMIN/GLOBULIN RATIO 0.8 (1.0-1.7); CALCIUM 9.1 mg/dL (8.5-10.1); CREATININE 1.3 mg/dL (0.6-1.0); GFR 39.1; TOTAL BILIRUBIN 1.4 mg/dL (0.2-1.0); TOTAL PROTEIN 6.3 g/dL (6.4-8.2)
[2017-08-12 06:42] LABS: POTASSIUM 2.9 mmol/L (3.5-5.1)
--- NOTE | 2017-08-12 09:13 | PDOC2 ---
FLAKITA DE LEON GEOTHERMAL OPERATIONS ENGINEER 08/12/17 0913: CONSULT Date of Admission DATE: 08/12/17 TIME: 08:54 Reason for Consult: atrial fibrillation with RVR Problem List Problems Medical Problems: (1) Atrial fibrillation with RVR Status: Acute (2) CHF (congestive heart failure) Status: Acute (3) Chronic cough Status: Acute (4) Edema extremities Status: Acute (5) Hypokalemia Status: Acute (6) Renal insufficiency Status: Acute History of Present Illness History of Present Illness The patient is an 80-year-old woman who presented to the hospital in the setting of bilateral ankle and foot pain, sudden onset shortness of breath and palpitations. She was found to be in atrial fibrillation with RVR. IN the ED she was noted to be in atrial fibrillation with rapid ventricular response. She was given Lopressor IV with good rate response. She is currently rate controlled on oral Cardizem and Metoprolol. She takes Eliquis for stroke prophylaxis. At baseline, she has been an NYHA functional class 2-3. She is able to do most activities of daily living without any significant limitations, but does require some help with bathing, grocery shopping as well as other activities around the house. She uses a walker to ambulate around the house. She denies any instability or falls. She reports an episode of chest pain about 1 week ago, onset at rest and lasting about 2 minutes. Pain resolved spontaneously and she denies any exacerbating or relieving factors. She denies any chest pain since then. She complains of dyspnea yesterday but now resolved. She denies congestive symptoms such as orthopnea, PND. She complains of ankle or foot pain but denies lower extremity edema. She denies any other complaints currently. Her son is at bedside and does not report any other issues. Past Medical History echo 09/06/16 Left ventricle systolic function is low normal. The Ejection Fraction is 50-55%. Wall motion not well visualized due to suboptimal image quality but grossly within normal limits. Tissue Doppler imaging reveals moderate left ventricular diastolic dysfunction. The left atrium is moderately dilated. The IVC is normal but collapses <50% with inspiration, suggestive of volume overload. PAST MEDICAL HISTORY: 1. Hypertension. 2. Breast cancer status post radiation. 3. Obesity. 4. Palpitations / paroxysmal atrial fibrillation 5. degenerative joint disease Past Surgical History mastectomy, joint replacement, cataract surgery with lens implant Family History non contributory Social History The patient lives with her son. Denies any excessive alcohol use. Denies any smoking. She enjoys going to the [employer] frequently. Current Medications Current Medications Metoprolol Tartrate (Lopressor Vial) 5 mg 1X ONCE IV Last administered on 10:03; Start 08/11/17 at 10:00; Stop 08/11/17 at 10:01; Status DC Fentanyl Citrate (Fentanyl 2ml Vial) 50 mcg 1X ONCE IM Last administered on 08/11/17at 10:25; Start 08/11/17 at 10:30; Stop 08/11/17 at 10:31; Status DC Potassium Chloride 100 ml @ 50 mls/hr 1X ONCE IV Last administered on at 10:46; Start 08/11/17 at 10:45; Stop 08/11/17 at 12:44; Status DC Potassium Chloride (KCl Oral Soln) 40 meq 1X ONCE PO Last administered on at 13:00; Start 08/11/17 at 12:30; Stop 08/11/17 at 12:37; Status DC Potassium Chloride (KCl Oral Soln) 40 meq 1X ONCE PO Last administered on at 14:00; Start 08/11/17 at 13:30; Stop 08/11/17 at 13:31; Status DC Potassium Chloride (KCl Oral Soln) 40 meq 1X ONCE PO ; Start 08/11/17 at 14:30; Stop 08/11/17 at 14:31; Status DC Potassium Chloride (KCl Oral Soln) 40 meq 1X ONCE PO ; Start 08/11/17 at 15:30; Stop 08/11/17 at 15:30; Status DC Apixaban (Eliquis) 5 mg BID PO Last administered on 08/11/17 20:02; Start at 21:00 Diltiazem HCl (Cardizem 24hr Cd) 240 mg BID PO Last administered on 08/11/17 20 :02; Start 08/11/17 at 21:00 Metoprolol Tartrate (Lopressor) 25 mg BID PO Last administered on 08/11/17at 20: 02; Start 08/11/17 at 21:00; Stop 08/12/17 at 07:33; Status DC Pantoprazole Sodium (Protonix) 40 mg DAILYAC PO ; Start 08/12/17 at 07:30 Ceftriaxone Sodium 1 gm/ Sodium Chloride 50 ml @ 100 mls/hr Q24H IV ; Start 08/11/17 at 15:30; Status UNV Albuterol Sulfate (Ventolin) 2.5 mg PRN Q6HRS PRN NEB SHORTNESS OF BREATH; Start 08/11/17 at 15:30 Budesonide (Pulmicort) 0.5 mg RTBID NEB Last administered on 08/11/17at 20:29; Start 08/11/17 at 20:00 Ceftriaxone Sodium (Rocephin) 1 gm Q24H IVP Last administered on 08/11/17at 16:14 ; Start 08/11/17 at 16:00 Lactobacillus Rhamnosus (Culturelle) 1 cap BID PO Last administered on at 20:01; Start 08/11/17 at 21:00 Potassium Chloride (Klor-Con) 20 meq BIDWMEALS PO ; Start 08/11/17 at 17:30; Stop 08/12/17 at 07:04; Status DC Potassium Chloride (Klor-Con) 40 meq TIDAC PO ; Start 08/12/17 at 07:30 Metoprolol Tartrate (Lopressor) 12.5 mg BID PO ; Start 08/12/17 at 09:00 Active Scripts Active Reported Furosemide 20 Mg Tablet 1 Tab PO DAILY Hydrochlorothiazide Tablet (Hydrochlorothiazide) 50 Mg Tablet 25 Mg PO DAILY Cartia Xt (Diltiazem Hcl) 240 Mg Cap.er.24h 240 Mg PO BID Potassium Chloride 10 Meq Tablet.er 10 Meq PO DAILY Metoprolol Tartrate 25 Mg Tablet 1 Tab PO BID Eliquis (Apixaban) 5 Mg Tablet 5 Mg PO BID Allergies: Coded Allergies: codeine (Unverified Allergy, Intermediate, VERY SICK, 12/01/13) General: Alert, Oriented X3, Cooperative, No acute distress HEENT: Atraumatic, EOMI, Mucous membr. moist/pink Lungs: Clear to auscultation, Normal air movement Heart: Other (Irregular rate and rhythm, no gallops, clicks or rubs. ) Abdomen: Normal bowel sounds, Soft, No tenderness Extremities: No cyanosis, Normal pulses, Other (trace edema) Neuro: Normal speech, Strength at 5/5 X4 ext Psych/Mental Status: Mental status NL, Mood NL VITALS Vital Signs Date Time Temp Pulse Resp B/P (MAP) Pulse Ox O2 Delivery O2 Flow Rate FiO2 08/12/17 06:28 98.5 85 20 102/66 (78) 94 Room Air Labs Laboratory Tests Test 08/11/17 09:50 08/11/17 11:30 08/11/17 15:55 08/12/17 06:12 White Blood Count 14.7 x10^3/uL (4.0-11.0) 14.1 x10^3/uL (4.0-11.0) 11.6 x10^3/uL (4.0-11.0) Red Blood Count 5.06 x10^6/uL (3.50-5.40) 4.74 x10^6/uL (3.50-5.40) 4.66 x10^6/uL (3.50-5.40) Hemoglobin 15.2 g/dL (12.0-15.5) 14.3 g/dL (12.0-15.5) 13.8 g/dL (12.0-15.5) Hematocrit 44.7 % (36.0-47.0) 42.2 % (36.0-47.0) 42.6 % (36.0-47.0) Mean Corpuscular Volume 88 fL (79-100) 89 fL (79-100) 92 fL (79-100) Mean Corpuscular Hemoglobin 30 pg (25-35) 30 pg (25-35) 30 pg (25-35) Mean Corpuscular Hemoglobin Concent 34 g/dL (31-37) 34 g/dL (31-37) 33 g/dL (31-37) Red Cell Distribution Width 13.1 % (11.5-14.5) 13.0 % (11.5-14.5) 12.7 % (11.5-14.5) Platelet Count 322 x10^3/uL (140-400) 330 x10^3/uL (140-400) 273 x10^3/uL (140-400) Neutrophils (%) (Auto) 82 % (31-73) 70 % (31-73) Lymphocytes (%) (Auto) 8 % (24-48) 17 % (24-48) Monocytes (%) (Auto) 10 % (0-9) 12 % (0-9) Eosinophils (%) (Auto) 0 % (0-3) 1 % (0-3) Basophils (%) (Auto) 1 % (0-3) 1 % (0-3) Neutrophils # (Auto) 12.0 x10^3uL (1.8-7.7) 8.1 x10^3uL (1.8-7.7) Lymphocytes # (Auto) 1.1 x10^3/uL (1.0-4.8) 2.0 x10^3/uL (1.0-4.8) Monocytes # (Auto) 1.5 x10^3/uL (0.0-1.1) 1.3 x10^3/uL (0.0-1.1) Eosinophils # (Auto) 0.0 x10^3/uL (0.0-0.7) 0.1 x10^3/uL (0.0-0.7) Basophils # (Auto) 0.1 x10^3/uL (0.0-0.2) 0.1 x10^3/uL (0.0-0.2) Prothrombin Time 11.1 SEC (9.4-11.4) Prothromb Time International Ratio 1.1 (0.9-1.1) D-Dimer (Naomi) 0.53 mg/L (0.00-0.50) Sodium Level 138 mmol/L (136-145) 137 mmol/L (136-145) 138 mmol/L (136-145) Potassium Level 2.6 mmol/L (3.5-5.1) 3.9 mmol/L (3.5-5.1) 2.9 mmol/L (3.5-5.1) Chloride Level 96 mmol/L (98-107) 98 mmol/L (98-107) 99 mmol/L (98-107) Carbon Dioxide Level 36 mmol/L (21-32) 32 mmol/L (21-32) 29 mmol/L (21-32) Anion Gap 6 (6-14) 7 (6-14) 10 (6-14) Blood Urea Nitrogen 29 mg/dL (7-20) 30 mg/dL (7-20) 28 mg/dL (7-20) Creatinine 1.5 mg/dL (0.6-1.0) 1.5 mg/dL (0.6-1.0) 1.3 mg/dL (0.6-1.0) Estimated GFR (Cockcroft-Gault) 33.2 33.2 39.1 BUN/Creatinine Ratio 19 (6-20) 20 (6-20) 22 (6-20) Glucose Level 136 mg/dL (70-99) 157 mg/dL (70-99) 119 mg/dL (70-99) Calcium Level 9.4 mg/dL (8.5-10.1) 9.1 mg/dL (8.5-10.1) 9.1 mg/dL (8.5-10.1) Magnesium Level 1.8 mg/dL (1.8-2.4) Total Bilirubin 1.7 mg/dL (0.2-1.0) 1.4 mg/dL (0.2-1.0) 1.4 mg/dL (0.2-1.0) Aspartate Amino Transf (AST/SGOT) 15 U/L (15-37) 14 U/L (15-37) 13 U/L (15-37) Alanine Aminotransferase (ALT/SGPT) 15 U/L (14-59) 15 U/L (14-59) 13 U/L (14-59) Alkaline Phosphatase 62 U/L (46-116) 59 U/L (46-116) 51 U/L (46-116) Creatine Kinase 45 U/L (26-192) Creatine Kinase MB (Mass) < 0.5 ng/mL (0.0-3.6) Creatine Kinase MB Relative Index 1.1 % (0-4) Troponin I Quantitative < 0.017 ng/mL (0-0.055) < 0.017 ng/mL (0-0.055) CF-Btk-A-Type Natriuretic Peptide 1491 pg/mL (0-449) Total Protein 7.2 g/dL (6.4-8.2) 6.9 g/dL (6.4-8.2) 6.3 g/dL (6.4-8.2) Albumin 3.3 g/dL (3.4-5.0) 3.1 g/dL (3.4-5.0) 2.8 g/dL (3.4-5.0) Albumin/Globulin Ratio 0.8 (1.0-1.7) 0.8 (1.0-1.7) 0.8 (1.0-1.7) Urine Collection Type U cath Urine Color Maritza Urine Clarity Hazy Urine pH 6.5 Urine Specific [place] 1.020 Urine Protein 30 mg/dl (NEG-TRACE) Urine Glucose (UA) Neg mg/dL (NEG) Urine Ketones (Stick) Neg mg/dL (NEG) Urine Blood Neg (NEG) Urine Nitrite Pos (NEG) Urine Bilirubin Neg (NEG) Urine Urobilinogen Dipstick 2 mg/dL (0.2 mg/dL) Urine Leukocyte Esterase Neg (NEG) Urine RBC Rare /HPF (0-2) Urine WBC 5-10 /HPF (0-4) Urine Squamous Epithelial Cells Mod /LPF Urine Bacteria Many /HPF (0-FEW) Lactic Acid Level 1.8 mmol/L (0.4-2.0) Images CXR - Impression: No acute radiographic abnormality is seen. Venous duplex - Impression: There are no sonographic findings of deep venous thrombosis within the veins discussed above of the right lower extremity. There are no sonographic findings of deep venous thrombosis within the veins discussed above of the left lower extremity. Assessment/Plan 1. atrial fibrillation with RVR - now controlled response. Continue Eliquis for stroke prophylaxis. Continue Cardizem and Metoprolol for stroke prophylaxis. Call pharmacy and verify patient home dose of Cardizem. As I recall she was only on 240mg once daily. 2. Chest pain 1 week ago, atypical - consider outpatient MPI. 3. hypertension - controlled on current meds, mild hypotension early this am, now normalized. 4. renal insufficiency, mild and stable. 5. hypokalemia - replace 6. leg pain - DVT sono negative, per PCP. Consider ABIs. Problems: LIZ JACKSON MD 08/13/17 8454: CONSULT Allergies: Coded Allergies: codeine (Unverified Allergy, Intermediate, VERY SICK, 12/01/13) Assessment/Plan Patient seen and examined. Agree with HAND ROUNDER's assessment and plan. Atrial fibrillation rate better controlled since admission. Continue Cardizem and metoprolol for rate control and Eliquis for stroke prophylaxis Recent 2-D echo showed normal LV function Recent chest pain with atypical features Ischemic evaluation in the form of stress test could be considered as an outpatient Thank you for your consultation Problems: FLAKITA D ELEON APRN Aug 12, 2017 09:13 LIZ JACKSON MD Aug 13, 2017 16:57
[2017-08-12] MEDS: APIXABAN 5 MG TABLET. PO SCH ×2 (09:38→21:36)
[2017-08-12] MEDS: LACTOBACILLUS RHAMNOSUS GG 1 CAPSULE. PO SCH ×2 (09:39→21:36)
[2017-08-12] MEDS: POTASSIUM CHLORIDE 20 MEQ TABLET.ER. PO SCH ×3 (09:39→16:50)
[2017-08-12] MEDS: PANTOPRAZOLE 40 MG TABLET. PO SCH (09:39)
[2017-08-12] MEDS: METOPROLOL TART IMMED RELEASE 25 MG TABLET PO SCH ×2 (09:49→21:37)
[2017-08-12 10:33] VITALS: BP 116/63
[2017-08-12] MEDS: BUDESONIDE 0.5 MG/2 ML NEBU NEB SCH ×2 (11:13→21:18)
[2017-08-12] MEDS ORDERED: ACETAMINOPHEN 500 MG TABLET PO PRN (11:15)
[2017-08-12] MEDS ORDERED: ACETAMINOPHEN 325 MG TABLET PO ONE (11:30)
[2017-08-12] MEDS ORDERED: methylPREDNISolone SOD SUCC PF 40 MG/ML VIAL. IV ONE (13:30)
[2017-08-12 14:35] VITALS: BP 115/73
[2017-08-12] MEDS: cefTRIAXone IV Push 1 GM VIAL. IVP SCH (16:51)
[2017-08-12 20:11] VITALS: BP 117/70
[2017-08-12 22:10] VITALS: BP 96/59
[2017-08-13 06:29] LABS: BASO % 0 % (0-3); EOS % 0 % (0-3); HEMATOCRIT 43.4 % (36.0-47.0); HEMOGLOBIN 14.7 g/dL (12.0-15.5); LYMPH # 1.2 x10^3/uL (1.0-4.8); LYMPH % 7 % (24-48); MEAN CORPUSCULAR HEMOGLOBIN 30 pg (25-35); MEAN CORPUSCULAR HGB CONC 34 g/dL (31-37); MEAN CORPUSCULAR VOLUME 88 fL (79-100); MONO # 0.4 x10^3/uL (0.0-1.1); MONO % 3 % (0-9); NEUT # 15.6 x10^3uL (1.8-7.7); NEUT % 90 % (31-73); PLATELET COUNT 351 x10^3/uL (140-400); RED BLOOD COUNT 4.91 x10^6/uL (3.50-5.40); RED CELL DISTRIBUTION WIDTH 12.9 % (11.5-14.5); WHITE BLOOD COUNT 17.3 x10^3/uL (4.0-11.0)
[2017-08-13 06:33] VITALS: BP 118/77
[2017-08-13 06:43] LABS: ALBUMIN 2.9 g/dL (3.4-5.0); ALBUMIN/GLOBULIN RATIO 0.7 (1.0-1.7); CALCIUM 9.5 mg/dL (8.5-10.1); CREATININE 1.4 mg/dL (0.6-1.0); GFR 35.9; POTASSIUM 4.5 mmol/L (3.5-5.1); TOTAL BILIRUBIN 0.7 mg/dL (0.2-1.0); TOTAL PROTEIN 7.1 g/dL (6.4-8.2)
[2017-08-13 08:03] LABS: % BANDS 1 % (0-9); % BASOS 0 % (0-3); % EOS 0 % (0-5); % LYMPHS 8 % (24-48); % MONOS 1 % (0-10); % SEGS 90 % (35-66); PLT ESTIMATE ADEQUATE (ADEQUATE)
[2017-08-13 08:07] VITALS: BP 131/68
[2017-08-13] MEDS: PANTOPRAZOLE 40 MG TABLET. PO SCH (08:25)
[2017-08-13] MEDS: POTASSIUM CHLORIDE 20 MEQ TABLET.ER. PO SCH ×3 (08:25→20:07)
[2017-08-13] MEDS: LACTOBACILLUS RHAMNOSUS GG 1 CAPSULE. PO SCH ×2 (08:27→21:13)
[2017-08-13] MEDS: APIXABAN 5 MG TABLET. PO SCH ×2 (08:27→21:13)
[2017-08-13] MEDS: METOPROLOL TART IMMED RELEASE 25 MG TABLET PO SCH ×2 (08:27→21:14)
--- NOTE | 2017-08-13 09:50 | PN ---
DATE: 08/12/2017 CURRENT PROBLEMS: 1. Atrial fibrillation with rapid ventricular rate. 2. Elevated D-dimer, pulmonary embolism ruled out. 3. Hypokalemia. 4. Chronic cough. 5. Congestive heart failure. 6. Foot and ankle pain. 7. Chronic kidney disease stage 3. 8. Urinary tract infection. 9. Leukocytosis, does not appear septic. SUBJECTIVE: An 82-year-old female who was admitted yesterday complaining of bilateral ankle and foot pain, sudden onset of shortness of breath and palpitations, also found to be in AFib with RVR. She was given Lopressor IV and had a good rate response. She saw Cardiology today as well. Today, her main complaint is the bilateral foot and ankle pain. Ultrasounds were negative. OBJECTIVE: VITAL SIGNS: Blood pressure 116/63, pulse 87, respirations 20, pulse ox 96% on room air, temperature 97.7, height 67 inches, weight 262.25 pounds. GENERAL: The patient's color is pale. HEENT: Tongue is moist. NECK: Supple. LUNGS: Clear. CARDIOVASCULAR: Irregular rhythm and rate. Rate varied between 101 yesterday and 85. ABDOMEN: Soft, nontender. EXTREMITIES: She has some small redness on the top of both feet. The feet are quite tender. Ankles are tender as well. Minimal swelling, but slight swelling. LABORATORY DATA: Sed rate is pending. Potassium was 2.9 this morning, BUN 28, creatinine 1.3. Urinalysis was positive for nitrites, 5-10 white cells. White blood cell count is 11.6. PLAN: Continue ceftriaxone. Check sed rate. I have Tylenol for pain and she should be evaluated by PT and OT. JOYCE LOPEZ DO DR: DEJON/tom JOB#: [id number] / [id number]
[2017-08-13] MEDS: BUDESONIDE 0.5 MG/2 ML NEBU NEB SCH ×2 (10:03→21:33)
[2017-08-13 11:16] VITALS: BP 118/72
--- NOTE | 2017-08-13 12:15 | PDOC ---
PROGRESS NOTES Diagnosis Problem Problems Medical Problems: (1) Atrial fibrillation with RVR Status: Acute (2) CHF (congestive heart failure) Status: Acute (3) Chronic cough Status: Acute (4) Edema extremities Status: Acute (5) Hypokalemia Status: Acute (6) Renal insufficiency Status: Acute Assessment Problems Medical Problems: (1) Atrial fibrillation with RVR Status: Acute (2) CHF (congestive heart failure) Status: Acute (3) Chronic cough Status: Acute (4) Edema extremities Status: Acute (5) Hypokalemia Status: Acute (6) Renal insufficiency Status: Acute 1. atrial fibrillation with RVR - controlled at rest, increased ventricular response with minimal activity. . Continue Eliquis for stroke prophylaxis. Continue Cardizem and increase Metoprolol for rate control. C 2. Chest pain 1 week ago, atypical - consider outpatient MPI. 3. hypertension - controlled on current meds, mild hypotension early this am, now normalized. 4. renal insufficiency, mild and stable. 5. hypokalemia - replace 6. leg pain - DVT sono negative, per PCP. Consider ABIs. Problems: Subjective feeling better, denies dyspnea, chest pain. Heart rate still increases with minimal exertion Objective Vital Signs Date Time Temp Pulse Resp B/P (MAP) Pulse Ox O2 Delivery O2 Flow Rate FiO2 08/13/17 11:16 75 18 118/72 (87) 93 Room Air 08/13/17 08:07 98.3 Intake and Output 08/13/17 07:00 Intake Total 1300 ml Output Total 800 ml Balance 500 ml Intake Oral 1300 ml Output Urine Total 800 ml Abdomen: Normal bowel sounds, Soft Heart: Other (IRR, no S3/S4) Extremities: No cyanosis, Normal pulses HEENT: Atraumatic, EOMI Lungs: Clear to auscultation Neuro: Normal speech Psych/Mental Status: Mental status NL, Mood NL Review of Relevant I have reviewed the following items cecelia (where applicable) has been applied. Labs Laboratory Tests Test 08/11/17 15:55 08/12/17 06:12 08/13/17 06:14 White Blood Count 14.1 x10^3/uL (4.0-11.0) 11.6 x10^3/uL (4.0-11.0) 17.3 x10^3/uL (4.0-11.0) Red Blood Count 4.74 x10^6/uL (3.50-5.40) 4.66 x10^6/uL (3.50-5.40) 4.91 x10^6/uL (3.50-5.40) Hemoglobin 14.3 g/dL (12.0-15.5) 13.8 g/dL (12.0-15.5) 14.7 g/dL (12.0-15.5) Hematocrit 42.2 % (36.0-47.0) 42.6 % (36.0-47.0) 43.4 % (36.0-47.0) Mean Corpuscular Volume 89 fL (79-100) 92 fL (79-100) 88 fL (79-100) Mean Corpuscular Hemoglobin 30 pg (25-35) 30 pg (25-35) 30 pg (25-35) Mean Corpuscular Hemoglobin Concent 34 g/dL (31-37) 33 g/dL (31-37) 34 g/dL (31-37) Red Cell Distribution Width 13.0 % (11.5-14.5) 12.7 % (11.5-14.5) 12.9 % (11.5-14.5) Platelet Count 330 x10^3/uL (140-400) 273 x10^3/uL (140-400) 351 x10^3/uL (140-400) Sodium Level 137 mmol/L (136-145) 138 mmol/L (136-145) 140 mmol/L (136-145) Potassium Level 3.9 mmol/L (3.5-5.1) 2.9 mmol/L (3.5-5.1) 4.5 mmol/L (3.5-5.1) Chloride Level 98 mmol/L (98-107) 99 mmol/L (98-107) 102 mmol/L (98-107) Carbon Dioxide Level 32 mmol/L (21-32) 29 mmol/L (21-32) 28 mmol/L (21-32) Anion Gap 7 (6-14) 10 (6-14) 10 (6-14) Blood Urea Nitrogen 30 mg/dL (7-20) 28 mg/dL (7-20) 30 mg/dL (7-20) Creatinine 1.5 mg/dL (0.6-1.0) 1.3 mg/dL (0.6-1.0) 1.4 mg/dL (0.6-1.0) Estimated GFR (Cockcroft-Gault) 33.2 39.1 35.9 BUN/Creatinine Ratio 20 (6-20) 22 (6-20) 21 (6-20) Glucose Level 157 mg/dL (70-99) 119 mg/dL (70-99) 146 mg/dL (70-99) Lactic Acid Level 1.8 mmol/L (0.4-2.0) Calcium Level 9.1 mg/dL (8.5-10.1) 9.1 mg/dL (8.5-10.1) 9.5 mg/dL (8.5-10.1) Total Bilirubin 1.4 mg/dL (0.2-1.0) 1.4 mg/dL (0.2-1.0) 0.7 mg/dL (0.2-1.0) Aspartate Amino Transf (AST/SGOT) 14 U/L (15-37) 13 U/L (15-37) 14 U/L (15-37) Alanine Aminotransferase (ALT/SGPT) 15 U/L (14-59) 13 U/L (14-59) 17 U/L (14-59) Alkaline Phosphatase 59 U/L (46-116) 51 U/L (46-116) 61 U/L (46-116) Troponin I Quantitative < 0.017 ng/mL (0-0.055) Total Protein 6.9 g/dL (6.4-8.2) 6.3 g/dL (6.4-8.2) 7.1 g/dL (6.4-8.2) Albumin 3.1 g/dL (3.4-5.0) 2.8 g/dL (3.4-5.0) 2.9 g/dL (3.4-5.0) Albumin/Globulin Ratio 0.8 (1.0-1.7) 0.8 (1.0-1.7) 0.7 (1.0-1.7) Neutrophils (%) (Auto) 70 % (31-73) 90 % (31-73) Lymphocytes (%) (Auto) 17 % (24-48) 7 % (24-48) Monocytes (%) (Auto) 12 % (0-9) 3 % (0-9) Eosinophils (%) (Auto) 1 % (0-3) 0 % (0-3) Basophils (%) (Auto) 1 % (0-3) 0 % (0-3) Neutrophils # (Auto) 8.1 x10^3uL (1.8-7.7) 15.6 x10^3uL (1.8-7.7) Lymphocytes # (Auto) 2.0 x10^3/uL (1.0-4.8) 1.2 x10^3/uL (1.0-4.8) Monocytes # (Auto) 1.3 x10^3/uL (0.0-1.1) 0.4 x10^3/uL (0.0-1.1) Eosinophils # (Auto) 0.1 x10^3/uL (0.0-0.7) 0.0 x10^3/uL (0.0-0.7) Basophils # (Auto) 0.1 x10^3/uL (0.0-0.2) 0.0 x10^3/uL (0.0-0.2) C-Reactive Protein 94.8 mg/L (0-3.3) Segmented Neutrophils % 90 % (35-66) Band Neutrophils % 1 % (0-9) Lymphocytes % 8 % (24-48) Monocytes % 1 % (0-10) Eosinophils % 0 % (0-5) Basophils % 0 % (0-3) Platelet Estimate Adequate (ADEQUATE) Large Platelets Occ Magnesium Level 2.0 mg/dL (1.8-2.4) Microbiology 08/11/17 Urine Culture - Preliminary, Resulted 08/11/17 Urine Culture Result 1 (STACIE) - Preliminary, Resulted Medications Current Medications Metoprolol Tartrate (Lopressor Vial) 5 mg 1X ONCE IV Last administered on at 10:03; Start 08/11/17 at 10:00; Stop 08/11/17 at 10:01; Status DC Fentanyl Citrate (Fentanyl 2ml Vial) 50 mcg 1X ONCE IM Last administered on 08/11/17at 10:25; Start 08/11/17 at 10:30; Stop 08/11/17 at 10:31; Status DC Potassium Chloride 100 ml @ 50 mls/hr 1X ONCE IV Last administered on at 10:46; Start 08/11/17 at 10:45; Stop 08/11/17 at 12:44; Status DC Potassium Chloride (KCl Oral Soln) 40 meq 1X ONCE PO Last administered on at 13:00; Start 08/11/17 at 12:30; Stop 08/11/17 at 12:37; Status DC Potassium Chloride (KCl Oral Soln) 40 meq 1X ONCE PO Last administered on at 14:00; Start 08/11/17 at 13:30; Stop 08/11/17 at 13:31; Status DC Potassium Chloride (KCl Oral Soln) 40 meq 1X ONCE PO ; Start 08/11/17 at 14:30; Stop 08/11/17 at 14:31; Status DC Potassium Chloride (KCl Oral Soln) 40 meq 1X ONCE PO ; Start 08/11/17 at 15:30; Stop 08/11/17 at 15:30; Status DC Apixaban (Eliquis) 5 mg BID PO Last administered on 08/13/17at 08:27; Start at 21:00 Diltiazem HCl (Cardizem 24hr Cd) 240 mg BID PO Last administered on 08/11/17at 20 :02; Start 08/11/17 at 21:00; Stop 08/12/17 at 10:23; Status DC Metoprolol Tartrate (Lopressor) 25 mg BID PO Last administered on 08/11/17at 20: 02; Start 08/11/17 at 21:00; Stop 08/12/17 at 07:33; Status DC Pantoprazole Sodium (Protonix) 40 mg DAILYAC PO Last administered on 08/13/17at 08:25; Start 08/12/17 at 07:30 Ceftriaxone Sodium 1 gm/ Sodium Chloride 50 ml @ 100 mls/hr Q24H IV ; Start 08/11/17 at 15:30; Status UNV Albuterol Sulfate (Ventolin) 2.5 mg PRN Q6HRS PRN NEB SHORTNESS OF BREATH; Start 08/11/17 at 15:30 Budesonide (Pulmicort) 0.5 mg RTBID NEB Last administered on 08/13/17 10:03; Start 08/11/17 at 20:00 Ceftriaxone Sodium (Rocephin) 1 gm Q24H IVP Last administered on 08/12/17at 16:51 ; Start 08/11/17 at 16:00 Lactobacillus Rhamnosus (Culturelle) 1 cap BID PO Last administered on 08:27; Start 08/11/17 at 21:00 Potassium Chloride (Klor-Con) 20 meq BIDWMEALS PO ; Start 08/11/17 at 17:30; Stop 08/12/17 at 07:04; Status DC Potassium Chloride (Klor-Con) 40 meq TIDAC PO Last administered on 08/13/17 08: 25; Start 08/12/17 at 07:30 Metoprolol Tartrate (Lopressor) 12.5 mg BID PO Last administered on 08/13/17 08 :27; Start 08/12/17 at 09:00 Diltiazem HCl (Cardizem 24hr Cd) 240 mg DAILY PO Last administered on 08/13/17 08:27; Start 08/13/17 at 09:00 Acetaminophen (Tylenol) 650 mg 1X ONCE PO Last administered on 08/12/17 11:47 ; Start 08/12/17 at 11:30; Stop 08/12/17 at 11:31; Status DC Acetaminophen (Tylenol) 500 mg PRN Q6HRS PRN PO PAIN / TEMP; Start 08/12/17 at 11:15 Methylprednisolone Sodium Succinate (SOLU-Medrol 40MG VIAL) 40 mg 1X ONCE IV Last administered on 08/12/17 13:47; Start 08/12/17 at 13:30; Stop 08/12/17 at 13: 31; Status DC Active Scripts Active Reported Furosemide 20 Mg Tablet 1 Tab PO DAILY Hydrochlorothiazide Tablet (Hydrochlorothiazide) 50 Mg Tablet 25 Mg PO DAILY Cartia Xt (Diltiazem Hcl) 240 Mg Cap.er.24h 240 Mg PO BID Potassium Chloride 10 Meq Tablet.er 10 Meq PO DAILY Metoprolol Tartrate 25 Mg Tablet 1 Tab PO BID Eliquis (Apixaban) 5 Mg Tablet 5 Mg PO BID Vitals/I & O Vital Sign - Last 24 Hours 08/12/17 08/12/17 08/12/17 08/12/17 14:35 20:00 20:11 20:47 Temp 98.5 98.3 Pulse 80 87 Resp 20 20 B/P (MAP) 115/73 (87) 117/70 (86) Pulse Ox 95 94 98 O2 Delivery Room Air Room Air Room Air Room Air 08/12/17 08/12/17 08/12/17 08/13/17 21:30 21:37 22:10 06:33 Temp 97.8 97.7 Pulse 87 87 100 Resp 20 20 B/P (MAP) 117/70 96/59 (71) 118/77 (91) Pulse Ox 93 93 O2 Delivery Room Air Room Air Room Air 08/13/17 08/13/17 08/13/17 08/13/17 08:00 08:07 08:27 08:27 Temp 98.3 Pulse 83 83 83 Resp 18 B/P (MAP) 131/68 (89) 131/68 131/68 Pulse Ox 90 O2 Delivery Room Air Room Air 08/13/17 08/13/17 10:04 11:16 Pulse 75 Resp 18 B/P (MAP) 118/72 (87) Pulse Ox 94 93 O2 Delivery Room Air Room Air Intake and Output 08/12/17 08/12/17 08/13/17 15:00 23:00 07:00 Intake Total 860 ml 240 ml 200 ml Output Total 800 ml Balance 860 ml 240 ml -600 ml FALKITA DE LEON APRN Aug 13, 2017 12:15
[2017-08-13 15:29] VITALS: BP 118/54
[2017-08-13] MEDS: cefTRIAXone IV Push 1 GM VIAL. IVP SCH (16:00)
[2017-08-13 20:17] VITALS: BP 100/61
--- NOTE | 2017-08-13 21:25 | PN ---
DATE: 08/13/2017 PROBLEMS: 1. Atrial fibrillation with rapid ventricular response. 2. Elevated D-dimer, pulmonary embolism ruled out. 3. Hypokalemia. 4. Chronic cough. 5. Congestive heart failure. 6. Foot and ankle pain. 7. Chronic kidney disease, stage III. 8. Urinary tract infection. 9. Leukocytosis, but does not appear septic. SUBJECTIVE: The patient is doing much better. She was seen by PT, who recommended that she have a stay on the skilled unit or swing bed status because she has been weak since being in bed. Her feet are better. She did receive one dose of steroids. She would like to go home, but would benefit much from skilled. PHYSICAL EXAMINATION: VITAL SIGNS: Blood pressure 131/68, pulse 83, respirations 18, temperature 98.3, and pulse ox 94% on room air. Color is pale. NECK: Supple. LUNGS: Clear. CARDIOVASCULAR: Slightly irregular rhythm and rate. ABDOMEN: Soft, nontender. EXTREMITIES: The feet ____ hurt as much, still a little warm to touch. Mild erythema, not consistent with cellulitis. PLAN: Investigate the swing bed status. JOYCE LOPEZ DO DR: DEJON/tom JOB#: [id number] / [id number]
[2017-08-13 23:23] VITALS: BP 124/73
[2017-08-14 06:00] VITALS: BP 101/66
[2017-08-14 07:29] LABS: BASO # 0.1 x10^3/uL (0.0-0.2); BASO % 1 % (0-3); EOS # 0.1 x10^3/uL (0.0-0.7); EOS % 0 % (0-3); HEMATOCRIT 40.4 % (36.0-47.0); HEMOGLOBIN 13.7 g/dL (12.0-15.5); LYMPH # 2.3 x10^3/uL (1.0-4.8); LYMPH % 15 % (24-48); MEAN CORPUSCULAR HEMOGLOBIN 30 pg (25-35); MEAN CORPUSCULAR HGB CONC 34 g/dL (31-37); MEAN CORPUSCULAR VOLUME 90 fL (79-100); MONO # 1.1 x10^3/uL (0.0-1.1); MONO % 7 % (0-9); NEUT # 11.8 x10^3uL (1.8-7.7); NEUT % 77 % (31-73); PLATELET COUNT 344 x10^3/uL (140-400); RED BLOOD COUNT 4.51 x10^6/uL (3.50-5.40); WHITE BLOOD COUNT 15.3 x10^3/uL (4.0-11.0)
[2017-08-14] MEDS: POTASSIUM CHLORIDE 20 MEQ TABLET.ER. PO SCH (07:30)
[2017-08-14 07:46] LABS: ALBUMIN 2.7 g/dL (3.4-5.0); ALBUMIN/GLOBULIN RATIO 0.7 (1.0-1.7); CALCIUM 9.2 mg/dL (8.5-10.1); CREATININE 1.4 mg/dL (0.6-1.0); GFR 35.9; TOTAL BILIRUBIN 0.4 mg/dL (0.2-1.0); TOTAL PROTEIN 6.4 g/dL (6.4-8.2)
[2017-08-14] MEDS ORDERED: FOSFOMYCIN TROMETHAMINE 3 GM PACKET PO ONE (08:00)
[2017-08-14] MEDS: APIXABAN 5 MG TABLET. PO SCH (09:27)
[2017-08-14] MEDS: LACTOBACILLUS RHAMNOSUS GG 1 CAPSULE. PO SCH (09:27)
[2017-08-14] MEDS: PANTOPRAZOLE 40 MG TABLET. PO SCH (09:27)
[2017-08-14] MEDS: METOPROLOL TART IMMED RELEASE 25 MG TABLET PO SCH (09:30)
[2017-08-14] MEDS ORDERED: POTA20TA4 PO (09:32)
[2017-08-14] MEDS: BUDESONIDE 0.5 MG/2 ML NEBU NEB SCH (09:41)
[2017-08-14 11:13] VITALS: BP 109/62
--- NOTE | 2017-08-14 11:56 | NUR ---
Discharge Note: JODY COELLO [address] Discharge instructions and discharge home medications reviewed with PATIENT & FAMILY and a copy given. All questions have been answered and understanding verbalized. The following instructions and handouts were given: MEDICATIONS, FOLLOW UP INSTRUCTIONS, AND EDUCATIONAL HANDOUTS GIVEN. PATIENT INSTRUCTED TO [employer]WORK [employer] PRESCRIPTIONS FROM HER PHARMACY THEY WERE TRANSMITTED ELECTRONICALLY. Discontinued lines and drains: PERIPHERAL IV DISCONTINUED WITH NO COMPLICATIONS. Patient discharged to HOME with HOME [facility] via [facility].
--- NOTE | 2017-08-14 14:09 | PDOC3 ---
Discharge Summary Visit Information Date of Admission: Aug 11, 2017 Date of Discharge: Aug 14, 2017 Final Diagnosis Problems Medical Problems: (1) Atrial fibrillation with RVR Status: Acute (2) CHF (congestive heart failure) Status: Acute (3) Chronic cough Status: Acute (4) Edema extremities Status: Acute (5) Hypokalemia Status: Acute (6) Renal insufficiency Status: Acute PROBLEMS: 1. Atrial fibrillation with rapid ventricular response. 2. Elevated D-dimer, pulmonary embolism ruled out. 3. Hypokalemia. 4. Chronic cough. 5. Congestive heart failure. 6. Foot and ankle pain WITH ELEVATED SED RATE-RELIEF OBTAINED WITH ONE DOSE OF STEROIDS 7. Chronic kidney disease, stage III. 8. Urinary tract infection. 9. Leukocytosis, but does not appear septic. Problems: Brief Hospital Course Allergies Allergies Coded Allergies Type Severity Reaction Last Updated Verified codeine Allergy Intermediate VERY SICK 12/01/13 No Vital Signs Vital Signs Date Time Temp Pulse Resp B/P (MAP) Pulse Ox O2 Delivery O2 Flow Rate FiO2 08/14/17 11:13 97.5 68 20 109/62 (78) 95 Room Air Lab Results Laboratory Tests Test 08/13/17 06:14 08/14/17 06:46 White Blood Count 17.3 x10^3/uL (4.0-11.0) 15.3 x10^3/uL (4.0-11.0) Red Blood Count 4.91 x10^6/uL (3.50-5.40) 4.51 x10^6/uL (3.50-5.40) Hemoglobin 14.7 g/dL (12.0-15.5) 13.7 g/dL (12.0-15.5) Hematocrit 43.4 % (36.0-47.0) 40.4 % (36.0-47.0) Mean Corpuscular Volume 88 fL (79-100) 90 fL (79-100) Mean Corpuscular Hemoglobin 30 pg (25-35) 30 pg (25-35) Mean Corpuscular Hemoglobin Concent 34 g/dL (31-37) 34 g/dL (31-37) Red Cell Distribution Width 12.9 % (11.5-14.5) 13.0 % (11.5-14.5) Platelet Count 351 x10^3/uL (140-400) 344 x10^3/uL (140-400) Neutrophils (%) (Auto) 90 % (31-73) 77 % (31-73) Lymphocytes (%) (Auto) 7 % (24-48) 15 % (24-48) Monocytes (%) (Auto) 3 % (0-9) 7 % (0-9) Eosinophils (%) (Auto) 0 % (0-3) 0 % (0-3) Basophils (%) (Auto) 0 % (0-3) 1 % (0-3) Neutrophils # (Auto) 15.6 x10^3uL (1.8-7.7) 11.8 x10^3uL (1.8-7.7) Lymphocytes # (Auto) 1.2 x10^3/uL (1.0-4.8) 2.3 x10^3/uL (1.0-4.8) Monocytes # (Auto) 0.4 x10^3/uL (0.0-1.1) 1.1 x10^3/uL (0.0-1.1) Eosinophils # (Auto) 0.0 x10^3/uL (0.0-0.7) 0.1 x10^3/uL (0.0-0.7) Basophils # (Auto) 0.0 x10^3/uL (0.0-0.2) 0.1 x10^3/uL (0.0-0.2) Segmented Neutrophils % 90 % (35-66) Band Neutrophils % 1 % (0-9) Lymphocytes % 8 % (24-48) Monocytes % 1 % (0-10) Eosinophils % 0 % (0-5) Basophils % 0 % (0-3) Platelet Estimate Adequate (ADEQUATE) Large Platelets Occ Sodium Level 140 mmol/L (136-145) 142 mmol/L (136-145) Potassium Level 4.5 mmol/L (3.5-5.1) 5.0 mmol/L (3.5-5.1) Chloride Level 102 mmol/L (98-107) 105 mmol/L (98-107) Carbon Dioxide Level 28 mmol/L (21-32) 30 mmol/L (21-32) Anion Gap 10 (6-14) 7 (6-14) Blood Urea Nitrogen 30 mg/dL (7-20) 37 mg/dL (7-20) Creatinine 1.4 mg/dL (0.6-1.0) 1.4 mg/dL (0.6-1.0) Estimated GFR (Cockcroft-Gault) 35.9 35.9 BUN/Creatinine Ratio 21 (6-20) 26 (6-20) Glucose Level 146 mg/dL (70-99) 100 mg/dL (70-99) Calcium Level 9.5 mg/dL (8.5-10.1) 9.2 mg/dL (8.5-10.1) Magnesium Level 2.0 mg/dL (1.8-2.4) 2.0 mg/dL (1.8-2.4) Total Bilirubin 0.7 mg/dL (0.2-1.0) 0.4 mg/dL (0.2-1.0) Aspartate Amino Transf (AST/SGOT) 14 U/L (15-37) 24 U/L (15-37) Alanine Aminotransferase (ALT/SGPT) 17 U/L (14-59) 31 U/L (14-59) Alkaline Phosphatase 61 U/L (46-116) 52 U/L (46-116) Total Protein 7.1 g/dL (6.4-8.2) 6.4 g/dL (6.4-8.2) Albumin 2.9 g/dL (3.4-5.0) 2.7 g/dL (3.4-5.0) Albumin/Globulin Ratio 0.7 (1.0-1.7) 0.7 (1.0-1.7) Brief Hospital Course Ms. Oneal is a 82 old [sex] who presented with [ ] HISTORY OF PRESENT ILLNESS: The patient is an 82-year-old female patient who came to the Emergency Room basically complaining of cough. She said that her cough has been going on for more than 2 months now, seen by her primary care physician. She has received treatment with different antibiotic without improvement. The cough has recently become productive with yellow sputum. She also had one episode of exertional shortness of breath this morning that lasted for a short time and resolved spontaneously. She was complaining of lower extremity edema for the last 4 days and seen by her primary care physician, treated with Lasix with improvement of her swelling, but the pain is not getting any better, has limited her mobility. The patient also did complain of chronic chills without fever, vomit. Denied, however, any chest pain. She was evaluated in the Emergency Room and was found to have leukocytosis and severe hypokalemia and her D-dimer was slightly elevated also. She has had a chest x-ray, which showed no acute radiographic abnormality seen and because of elevated D-dimer, she has showed that there are no sonographic findings of deep vein thrombosis within the veins, both right and lower extremity. The patient was admitted with atrial fibrillation with rapid ventricular response, hypokalemia, renal insufficiency, chronic cough, congestive heart failure and lower extremity edema. SHE WAS TREATED WITH ANTIBIOTICS, DIURETICS AND BREATHING TREATMENTS. SHE WAS SEEN BY PT AND OT AND REHAB WAS ADVISED BUT SHE DECLINED. HER HYPOKALEMIA WAS TREATED. SHE HAD SOME BILATERAL FOOT PAIN, POSSIBOLY DUE TO INCREASE IN HER ACTIBITY, SHE HAD ONE DOSE OF STEROIDS AND HER PAIN WAS RELIEVED. IN SPITE OF MY BEST EFFORTS SHE DECLINED REHAB BUT WAS WILING TO HAVE PT IN HER HOME. SHE WAS DISCHARGED IN GOOD CONDITION TO HOME HEALTH. SHE HAS A LARGE FAMILY OF 11 CHILDREN WHO WILL MONITOR HER HEALTH. Discharge Information Condition at Discharge: Improved, Stable Disposition/Orders: D/C to Home w/ HH Dischare Medications Current Medications Metoprolol Tartrate (Lopressor Vial) 5 mg 1X ONCE IV Last administered on 10:03; Start 08/11/17 at 10:00; Stop 08/11/17 at 10:01; Status DC Fentanyl Citrate (Fentanyl 2ml Vial) 50 mcg 1X ONCE IM Last administered on 08/11/17at 10:25; Start 08/11/17 at 10:30; Stop 08/11/17 at 10:31; Status DC Potassium Chloride 100 ml @ 50 mls/hr 1X ONCE IV Last administered on at 10:46; Start 08/11/17 at 10:45; Stop 08/11/17 at 12:44; Status DC Potassium Chloride (KCl Oral Soln) 40 meq 1X ONCE PO Last administered on at 13:00; Start 08/11/17 at 12:30; Stop 08/11/17 at 12:37; Status DC Potassium Chloride (KCl Oral Soln) 40 meq 1X ONCE PO Last administered on at 14:00; Start 08/11/17 at 13:30; Stop 08/11/17 at 13:31; Status DC Potassium Chloride (KCl Oral Soln) 40 meq 1X ONCE PO ; Start 08/11/17 at 14:30; Stop 08/11/17 at 14:31; Status DC Potassium Chloride (KCl Oral Soln) 40 meq 1X ONCE PO ; Start 08/11/17 at 15:30; Stop 08/11/17 at 15:30; Status DC Apixaban (Eliquis) 5 mg BID PO Last administered on 08/14/17at 09:27; Start at 21:00; Stop 08/14/17 at 11:58; Status DC Diltiazem HCl (Cardizem 24hr Cd) 240 mg BID PO Last administered on 08/11/17at 20 :02; Start 08/11/17 at 21:00; Stop 08/12/17 at 10:23; Status DC Metoprolol Tartrate (Lopressor) 25 mg BID PO Last administered on 08/11/17at 20: 02; Start 08/11/17 at 21:00; Stop 08/12/17 at 07:33; Status DC Pantoprazole Sodium (Protonix) 40 mg DAILYAC PO Last administered on 08/14/17at 09:27; Start 08/12/17 at 07:30; Stop 08/14/17 at 11:58; Status DC Ceftriaxone Sodium 1 gm/ Sodium Chloride 50 ml @ 100 mls/hr Q24H IV ; Start 08/11/17 at 15:30; Status UNV Albuterol Sulfate (Ventolin) 2.5 mg PRN Q6HRS PRN NEB SHORTNESS OF BREATH; Start 08/11/17 at 15:30; Stop 08/14/17 at 11:58; Status DC Budesonide (Pulmicort) 0.5 mg RTBID NEB Last administered on 08/14/17at 09:41; Start 08/11/17 at 20:00; Stop 08/14/17 at 11:58; Status DC Ceftriaxone Sodium (Rocephin) 1 gm Q24H IVP Last administered on 08/13/17at 16:00 ; Start 08/11/17 at 16:00; Stop 08/14/17 at 11:58; Status DC Lactobacillus Rhamnosus (Culturelle) 1 cap BID PO Last administered on 09:27; Start 08/11/17 at 21:00; Stop 08/14/17 at 11:58; Status DC Potassium Chloride (Klor-Con) 20 meq BIDWMEALS PO ; Start 08/11/17 at 17:30; Stop 08/12/17 at 07:04; Status DC Potassium Chloride (Klor-Con) 40 meq TIDAC PO Last administered on 08/13/17at 20: 07; Start 08/12/17 at 07:30; Stop 08/14/17 at 11:58; Status DC Metoprolol Tartrate (Lopressor) 12.5 mg BID PO Last administered on 08/13/17 08 :27; Start 08/12/17 at 09:00; Stop 08/13/17 at 12:15; Status DC Diltiazem HCl (Cardizem 24hr Cd) 240 mg DAILY PO Last administered on 08/14/17at 09:31; Start 08/13/17 at 09:00; Stop 08/14/17 at 11:58; Status DC Acetaminophen (Tylenol) 650 mg 1X ONCE PO Last administered on 08/12/17at 11:47 ; Start 08/12/17 at 11:30; Stop 08/12/17 at 11:31; Status DC Acetaminophen (Tylenol) 500 mg PRN Q6HRS PRN PO PAIN / TEMP; Start 08/12/17 at 11:15; Stop 08/14/17 at 11:58; Status DC Methylprednisolone Sodium Succinate (SOLU-Medrol 40MG VIAL) 40 mg 1X ONCE IV Last administered on 08/12/17at 13:47; Start 08/12/17 at 13:30; Stop 08/12/17 at 13: 31; Status DC Metoprolol Tartrate (Lopressor) 25 mg BID PO Last administered on 08/14/17at 09: 30; Start 08/13/17 at 21:00; Stop 08/14/17 at 11:58; Status DC Fosfomycin Tromethamine (Monurol) 3 gm 1X ONCE PO Last administered on at 09:26; Start 08/14/17 at 08:00; Stop 08/14/17 at 08:26; Status DC Active Scripts Active Klor-Con M20 (Potassium Chloride) 20 Meq Tab.er.prt 40 Meq PO DAILY08 90 Days Reported Furosemide 20 Mg Tablet 1 Tab PO DAILY Cartia Xt (Diltiazem Hcl) 240 Mg Cap.er.24h 240 Mg PO BID Metoprolol Tartrate 25 Mg Tablet 1 Tab PO BID Eliquis (Apixaban) 5 Mg Tablet 5 Mg PO BID Patient Instructions Patient Instuctions DISCHARGE HOME ON HOME HEALTH. FOUND TO BE ON TWO DIURETICS SO ONE WAS DISCONTINUED. POTASSIUM DOSE ADJUSTED. JOYCE LOPEZ DO Aug 14, 2017 14:09
== END 2017-08-14 11:20 | disposition home health service (06) | DRG 292 ==
LOC: ER 09:28 → 1 SOUTH 11:41
PROVIDERS: ADMIT Internal Medicine; ATTEND Internal Medicine
DX: I13.0 Hypertensive heart and chronic kidney disease with heart failure and stage 1 through stage 4 chronic kidney disease, or unspecified chronic kidney disease (principal); Z68.41 Body mass index [BMI] 40.0-44.9, adult; N18.3 Chronic kidney disease, stage 3 (moderate); I48.0 Paroxysmal atrial fibrillation; N39.0 Urinary tract infection, site not specified; R05 Cough; E87.6 Hypokalemia; I50.9 Heart failure, unspecified; M25.572 Pain in left ankle and joints of left foot; M25.571 Pain in right ankle and joints of right foot; Z96.1 Presence of intraocular lens; Z96.642 Presence of left artificial hip joint; R79.1 Abnormal coagulation profile; R07.89 Other chest pain; M19.90 Unspecified osteoarthritis, unspecified site; E66.9 Obesity, unspecified; Z79.899 Other long term (current) drug therapy; Z79.01 Long term (current) use of anticoagulants; Z92.3 Personal history of irradiation; Z90.12 Acquired absence of left breast and nipple; Z85.3 Personal history of malignant neoplasm of breast; Z98.41 Cataract extraction status, right eye; Z98.42 Cataract extraction status, left eye; Z88.5 Allergy status to narcotic agent; Z80.9 Family history of malignant neoplasm, unspecified
CPT/HCPCS: 36415; 51701; 71045; 80053; 81001; 82553; 83605; 83735; 83880; 84484; 85007; 85025; 85027; 85379; 85610; 86140; 87086; 87186; 93005; 93970; 94640; 96365; 96372; 96375; J0696; J2920; J3010; J3480; J3490; J7626; 99285-25

== ENCOUNTER 2018-12-15 10:31 | Emergency (ER) | payer MEDICARE, BC ==
[~2018-12-15 10:31] MED LIST changes: +ALBU2.5V8 INH; -ALBU8.5H8 INH; +DILT240C66 PO; +FURO20TA3 PO; +HYDR-2145 PO; -HYDR25TA9 PO; +HYDR50TA6 PO; +METO25TA4 PO; +POTA10TA10 PO; +POTA20TA4 PO
[2018-12-15 10:40] VITALS: BP 143/71
[2018-12-15] MEDS ORDERED: 0.9 % SODIUM CHLORIDE 10 ML DISP.SYRIN. IV PRN (10:45)
--- NOTE | 2018-12-15 10:53 | PHYS DOC ---
Past History Past Medical History: A-Fib, Cancer, Hypertension Past Surgical History: Cancer Surgery, Hip Replacement, Other Smoking: Non-smoker Alcohol Use: None Drug Use: None Adult General Chief Complaint Chief Complaint: MULTIPLE COMPLAINTS HPI HPI Patient is a 83 year old female who presents with complaint of leg swelling and headache. The patient was brought to the emergency department by EMS. States that she awoke with a mild headache this morning and noted increased swelling to her lower extremities. 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 Patient appears to have somewhat poor insight to medical history. Denies any chest pain, abdominal pain, nausea, or shortness of breath currently. Patient states that she asked her son to call EMS that she was not feeling well and wanted to come to the emergency department for evaluation. Review of Systems Review of Systems Constitutional: Denies fever or chills [] Eyes: Denies change in visual acuity, redness, or eye pain [] HENT: Denies nasal congestion or sore throat [] Respiratory: Denies cough or shortness of breath [] Cardiovascular: Leg swelling, denies chest pain[] GI: Denies abdominal pain, nausea, vomiting, bloody stools or diarrhea [] : Denies dysuria or hematuria [] Musculoskeletal: Denies back pain or joint pain [] Integument: Denies rash or skin lesions [] Neurologic: Headache, denies focal weakness or sensory changes [] All other systems were reviewed and found to be within normal limits, except as documented in this note. Allergies Allergies Allergies Coded Allergies Type Severity Reaction Last Updated Verified codeine Allergy Intermediate VERY SICK 12/01/13 No Physical Exam Physical Exam Constitutional: Alert, afebrile, appears in chronically poor health, no acute distress. [] HENT: Normocephalic, atraumatic, bilateral external ears normal, oropharynx moist, no oral exudates, nose normal. [] Eyes: PERRLA, EOMI, conjunctiva normal, no discharge. [] Neck: Normal range of motion, no tenderness, supple, no stridor. [] Cardiovascular: Normal rate, irregular rhythm, no murmur [] Lungs & Thorax: Bilateral breath sounds clear to auscultation [] Abdomen: Bowel sounds normal, soft, no tenderness, no masses, no pulsatile masses. [] Skin: Warm, dry, no erythema, no rash. [] Back: No tenderness, no CVA tenderness. [] Extremities: No tenderness, no cyanosis, no clubbing, ROM intact, trace pedal edema bilaterally. [] Neurologic: Alert and oriented X 3, normal motor function, normal sensory function, no focal deficits noted. [] Current Patient Data Vital Signs Vital Signs Date Time Temp Pulse Resp B/P (MAP) Pulse Ox O2 Delivery O2 Flow Rate FiO2 12/15/18 10:40 68 18 96 Room Air Lab Results Laboratory Tests Test 12/15/18 11:03 12/15/18 11:17 White Blood Count 8.2 x10^3/uL Red Blood Count 5.05 x10^6/uL Hemoglobin 15.2 g/dL Hematocrit 46.5 % Mean Corpuscular Volume 92 fL Mean Corpuscular Hemoglobin 30 pg Mean Corpuscular Hemoglobin Concent 33 g/dL Red Cell Distribution Width 13.4 % Platelet Count 274 x10^3/uL Neutrophils (%) (Auto) 69 % Lymphocytes (%) (Auto) 17 % Monocytes (%) (Auto) 10 % Eosinophils (%) (Auto) 3 % Basophils (%) (Auto) 1 % Neutrophils # (Auto) 5.6 x10^3uL Lymphocytes # (Auto) 1.4 x10^3/uL Monocytes # (Auto) 0.8 x10^3/uL Eosinophils # (Auto) 0.2 x10^3/uL Basophils # (Auto) 0.1 x10^3/uL Sodium Level 142 mmol/L Potassium Level 4.3 mmol/L Chloride Level 104 mmol/L Carbon Dioxide Level 30 mmol/L Anion Gap 8 Blood Urea Nitrogen 23 mg/dL Creatinine 1.3 mg/dL Estimated GFR (Cockcroft-Gault) 39.0 BUN/Creatinine Ratio 18 Glucose Level 96 mg/dL Calcium Level 9.0 mg/dL Magnesium Level 1.7 mg/dL Total Bilirubin 0.6 mg/dL Aspartate Amino Transf (AST/SGOT) 16 U/L Alanine Aminotransferase (ALT/SGPT) 20 U/L Alkaline Phosphatase 74 U/L Creatine Kinase 46 U/L Creatine Kinase MB (Mass) 0.5 ng/mL Creatine Kinase MB Relative Index 1.1 % Troponin I Quantitative < 0.017 ng/mL [id number] Natriuretic Peptide 1530 pg/mL Total Protein 7.1 g/dL Albumin 3.3 g/dL Albumin/Globulin Ratio 0.9 Urine Collection Type Unknown Urine Color Yellow Urine Clarity Hazy Urine pH 5.5 Urine Specific [place] 1.015 Urine Protein Neg Urine Glucose (UA) Neg mg/dL Urine Ketones (Stick) Neg mg/dL Urine Blood Trace Urine Nitrite Neg Urine Bilirubin Neg Urine Urobilinogen Dipstick 0.2 mg/dL Urine Leukocyte Esterase Trace Urine RBC 1-2 /HPF Urine WBC 5-10 /HPF Urine Squamous Epithelial Cells Many /LPF Urine Bacteria Few /HPF Urine Mucus Slight /LPF Current Medications Medications (Trade) Dose Ordered Sig/Parveen Route PRN Reason Start Time Stop Time Status Last Admin Dose Admin Sodium Chloride (Normal Saline Flush) 10 ml QSHIFT PRN IV AFTER MEDS AND BLOOD DRAWS 12/15/18 10:45 Acetaminophen (Tylenol) 650 mg 1X ONCE PO 12/15/18 11:20 12/15/18 11:21 DC EKG EKG Interpreted by me: Heart rate 69, atrial fibrillation, right axis deviation, bifascicular block, no acute ST elevation or depression[] Radiology/Procedures Radiology/[place] [address] IMAGING REPORT Signed PATIENT: JODY COELLO ACCOUNT: [id number] : 1935 LOCATION: ER AGE: 83 SEX: F EXAM STATUS: REG ER ORD. PHYSICIAN: AMY GARCIA MD REASON: leg swelling, hx of CHF PROCEDURE: PORTABLE CHEST 1V PORTABLE CHEST 1V History: Leg swelling, CHF.. Comparison with 08/11/2017. Tarsi is widened in transverse diameter. This has increased since previous exam. No evidence of pneumothorax. No pleural effusion. No evidence of an infiltrate. IMPRESSION: 1. Widening of cardiac silhouette suggesting cardiomegaly or pericardial effusion. 2. No consolidating infiltrate. Electronically signed by: Kevin Rojas MD (12/15/2018 11:07 AM) [id number] DICTATED AND SIGNED BY: KEVIN ROJAS MD DATE: 12/15/18 [id number] CC: AMY GARCIA MD; MAXIMILIANO RAGLAND ~ [] Course & Med Decision Making Course & Med Decision Making Pertinent Labs and Imaging studies reviewed. (See chart for details) Patient appears in no acute distress at this time. Chest x-ray shows no evidence of pulmonary edema or effusion. Urinalysis shows potential signs of urinary tract infection though with the presence of epithelial cells, contamination is also possible. The rest the patient's blood work is otherwise stable at this time. I spoke with the patient and the patient's daughter regarding current condition which appears to be stable. I recommended that the patient temporarily double Lasix dosing for the next 3 days to help improve diuresis. Also recommend to consider initiation of oral antibiotic for treatment of possible urinary tract infection. I asked if there were any additional concerns regarding the patient's safety at home and they did not report any. Patient does not appear confused at this time. I feel the patient is otherwise stable for discharge at this time and recommended follow-up in one to 2 days with primary doctor for reevaluation. Prescribe seven-day course of Keflex for treatment of UTI. Advised return to emergency department for any worsening symptoms. Patient and patient's daughter voiced understanding and in agreement with treatment plan. Dragon Disclaimer Dragon Disclaimer This electronic medical record was generated, in whole or in part, using a voice recognition dictation system. Departure Departure: Impression: Primary Impression: Urinary tract infection Additional Impression: Congestive heart failure Disposition: 01 HOME, SELF-CARE Condition: STABLE Referrals: MAXIMILIANO RAGLAND (PCP) Patient Instructions: Heart Failure, Urinary Tract Infection Additional Instructions: For the next 3 days, increase your daily for a dose of midodrine dosage to 40 mg daily. Follow-up with your primary doctor in 1-2 days for reevaluation. Return to the emergency department for any worsening symptoms. Scripts Cephalexin (KEFLEX) 500 Mg Capsule 1 CAP PO BID, #14 CAP Prov: AMY GARCIA MD 12/15/18 Problem Qualifiers Primary Impression: Urinary tract infection Urinary tract infection type: site unspecified Hematuria presence: without hematuria Qualified Codes: N39.0 - Urinary tract infection, site not specified Additional Impression: Congestive heart failure Heart failure type: unspecified Heart failure chronicity: unspecified Qualified Codes: I50.9 - Heart failure, unspecified AMY GARCIA MD Dec 15, 2018 10:53
--- NOTE | 2018-12-15 11:10 | RAD ---
PORTABLE CHEST 1V History: Leg swelling, CHF.. Comparison with 08/11/2017. Tarsi is widened in transverse diameter. This has increased since previous exam. No evidence of pneumothorax. No pleural effusion. No evidence of an infiltrate. IMPRESSION: 1. Widening of cardiac silhouette suggesting cardiomegaly or pericardial effusion. 2. No consolidating infiltrate. Electronically signed by: Kevin Rojas MD (12/15/2018 11:07 AM) [id number]
[2018-12-15 11:17] LABS: BASO # 0.1 x10^3/uL (0.0-0.2); BASO % 1 % (0-3); EOS # 0.2 x10^3/uL (0.0-0.7); EOS % 3 % (0-3); HEMATOCRIT 46.5 % (36.0-47.0); HEMOGLOBIN 15.2 g/dL (12.0-15.5); LYMPH # 1.4 x10^3/uL (1.0-4.8); LYMPH % 17 % (24-48); MEAN CORPUSCULAR HEMOGLOBIN 30 pg (25-35); MEAN CORPUSCULAR HGB CONC 33 g/dL (31-37); MEAN CORPUSCULAR VOLUME 92 fL (79-100); MONO # 0.8 x10^3/uL (0.0-1.1); MONO % 10 % (0-9); NEUT # 5.6 x10^3uL (1.8-7.7); NEUT % 69 % (31-73); PLATELET COUNT 274 x10^3/uL (140-400); RED BLOOD COUNT 5.05 x10^6/uL (3.50-5.40); RED CELL DISTRIBUTION WIDTH 13.4 % (11.5-14.5); WHITE BLOOD COUNT 8.2 x10^3/uL (4.0-11.0)
[2018-12-15] MEDS ORDERED: ACETAMINOPHEN 325 MG TABLET PO ONE (11:20)
[2018-12-15 11:50] LABS: ALBUMIN 3.3 g/dL (3.4-5.0); ALBUMIN/GLOBULIN RATIO 0.9 (1.0-1.7); CREATININE 1.3 mg/dL (0.6-1.0); MAGNESIUM 1.7 mg/dL (1.8-2.4); POTASSIUM 4.3 mmol/L (3.5-5.1); TOTAL BILIRUBIN 0.6 mg/dL (0.2-1.0); TOTAL PROTEIN 7.1 g/dL (6.4-8.2)
[2018-12-15 11:50] LABS: BACTERIA,URINE FEW /HPF (0-FEW); BILIRUBIN,URINE NEG (NEG); CLARITY,URINE HAZY; COLOR,URINE YELLOW; GLUCOSE,URINE NEG (NEG); NITRITE,URINE NEG (NEG); SQUAMOUS EPITHELIAL CELL,UR MANY /LPF; UROBILINOGEN,URINE 0.2 mg/dL (0.2 mg/dL)
[2018-12-15] MEDS ORDERED: CEPH-264 PO (12:18)
== END 2018-12-15 12:30 | disposition home or self-care (01) ==
LOC: ER 10:31
DX: I11.0 Hypertensive heart disease with heart failure (principal); I50.9 Heart failure, unspecified; N39.0 Urinary tract infection, site not specified; I48.91 Unspecified atrial fibrillation; Z88.5 Allergy status to narcotic agent
CPT/HCPCS: 36415; 71045; 80053; 81001; 82553; 83735; 83880; 84484; 85025; 87086; 93005; 99285

== ENCOUNTER → 2020-11-04 | Outpatient (CLI) | payer MEDICARE ==
[~2020-11-04] MED LIST changes: -ASPI-612 PO; +ASPI-889 PO; +CEPH-264 PO; -HYDR50TA6 PO; +HYDR50TA9 PO; -LISI-334 PO; +LISI20TA18 PO
--- NOTE | 2020-11-04 14:01 | RAD ---
EXAM: Head CT without contrast. HISTORY: Subdural hematoma follow-up. TECHNIQUE: Computed tomographic images of the head were obtained without contrast. *One or more of the following individualized dose reduction techniques were utilized for this examina tion: 1. Automated exposure control. 2. Adjustment of the mA and/or kV according to patient size. 3. Use of iterative reconstruction technique. COMPARISON: 10/26/2020. FINDINGS: There has been is near complete resolution of a recently demonstrated subdural hematoma redd ng the left cerebral convexity. There is a minimal residual hematoma measuring 2 mm in thickness in t his location. There is no new hemorrhage. There is no mass effect or midline shift. There is no hydro cephalus. There is cerebral volume loss. There is decreased attenuation within the cerebral white mat ter due to chronic small vessel disease. 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 There is evidence of lens surgery. The paranasal sinuses and mastoid air cells a re clear. There has been near complete resolution of a previously demonstrated left inferior frontal scalp and supraorbital soft tissue hematoma. IMPRESSION: 1. Near complete resolution of a tiny subacute subdural hematoma along the left cerebral convexity. T here is also been near complete resolution of a previously demonstrated small left frontal scalp and supraorbital soft tissue hematoma. 2. Bilateral white matter changes, likely due to chronic small vessel disease. There is a suspected s uperposed chronic infarct within the right frontal lobe. 3. Cerebral volume loss. Electronically signed by: Teresita Navas MD (11/04/2020 1:59 PM) [id number]
== END ==
LOC: CT 13:25
PROVIDERS: ATTEND Internal Medicine
DX: S06.5X9A Traumatic subdural hemorrhage with loss of consciousness of unspecified duration, initial encounter (principal); X58.XXXA Exposure to other specified factors, initial encounter; Y93.89 Activity, other specified; Y92.89 Other specified places as the place of occurrence of the external cause; Y99.8 Other external cause status
CPT/HCPCS: 70450

== ENCOUNTER 2021-09-10 12:44 | Emergency (ER) | payer MEDICARE ==
[~2021-09-10] VITALS: Ht 170.2 cm; Wt 124.0 kg
[~2021-09-10 12:44] MED LIST changes: +POTA-121 PO; -POTA20TA4 PO
[2021-09-10] MEDS ORDERED: MORPHINE SULFATE 2 MG/ML DISP.SYRIN. IV/SQ PRN (13:30)
--- NOTE | 2021-09-10 13:51 | RAD ---
EXAMINATION: Chest radiograph. VIEWS: Single AP view of the chest COMPARISON: 12/15/2018 INDICATION:86 years, Female, bilateral lower extremity swelling, history of CHF. FINDINGS: Heart is enlarged. Central pulmonary vasculature is prominent and slightly indistinct. Increased inte rstitial reticulations. Patchy peripheral bilateral perihilar and basilar opacities some of this may represent soft tissue summation. No pleural effusion or pneumothorax. No acute osseous process. IMPRESSION: Moderate cardiomegaly with findings suggestive of mild interstitial pulmonary edema. Superimposed inf ection is difficult to exclude. Electronically signed by: Manny Hoff DO (09/10/2021 1:49 PM) [facility]
--- NOTE | 2021-09-10 14:43 | PHYS DOC ---
Past History Past Medical History: Arrhythmia, High Cholesterol, Hypertension (MERI STARK APRN) Past Surgical History: Cancer Surgery, Hip Replacement, Knee Replacement (MERI STARK APRN) Smoking: Non-smoker Alcohol Use: None Drug Use: None (MERI STARK APRN) General Adult EDM: Chief Complaint: LOWER EXTREMITY SWELLING HPI: HPI: Patient is a 86-year-old female presents with bilateral, lower leg swelling. Patient states that she was seen by Dr. Montalvo last week but put on no medication. Patient is a poor historian. Patient is denying chest pain, cough, shortness of breath. Patient's heart rate is in the mid to low 40s. Patient states"denies recent illness. No fevers. History of hypertension, CHF, hyperlipidemia, gout. (MERI STARK APRN) Review of Systems: Review of Systems: ROS At least 10 ROS systems have been reviewed and are negative except as documented in the HPI. General: Negative except as outlined in HPI above. Skin: Negative except as outlined in HPI above. HEENT: Negative except as outlined in HPI above. Neck: Negative except as outlined in HPI above. Respiratory: Negative except as outlined in HPI above.. Cardiovascular: Negative except as outlined in HPI above. Abdomen: Negative except as outlined in HPI above. : Negative except as outlined in HPI above. Back/MSK: Negative except as outlined in HPI above. Neuro: Negative except as outlined in HPI above. Psych: Negative except as outlined in HPI above. (MERI STARK APRN) Current Medications: Current Meds: Current Medications Medications (Trade) Dose Ordered Sig/Parveen Start Time Stop Time Status Last Admin Dose Admin Morphine Sulfate (Morphine 2mg Syringe) 2 mg PRN Q15MIN PRN 09/10/21 13:30 09/11/21 13:29 (MERI STARK APRN) Allergies: Allergies: Allergies Coded Allergies Type Severity Reaction Last Updated Verified codeine Allergy Intermediate VERY SICK 12/01/13 No (MERI STARK APRN) Physical Exam: PE: Constitutional: Well developed, well nourished, no acute distress, non-toxic appearance. HENT: bilateral external ears normal, oropharynx moist, no oral exudates, nose normal. Eyes: PERRLA,conjunctiva normal, no discharge. Neck: Normal range of motion, no tenderness, supple, no stridor. Cardiovascular:Heart rate regular rhythm, no murmur Lungs & Thorax: Bilateral breath sounds clear to auscultation Abdomen: Bowel sounds normal, soft, no tenderness, no masses Skin: Warm, dry, no erythema, no rash. Back: No tenderness, no CVA tenderness. Extremities: Bilateral, lower leg swelling. 3+ pitting edema, tenderness to bilateral legs. Range of motion and sensation intact. Neurologic: Alert and oriented X 3, normal motor function, normal sensory function, no focal deficits noted Psychologic: Affect normal, judgement normal, mood normal. (MERI STARK APRN) Current Patient Data: Vital Signs: Vital Signs Date Time Temp Pulse Resp B/P (MAP) Pulse Ox O2 Delivery O2 Flow Rate FiO2 09/10/21 12:55 98.2 45 18 123/64 (83) 95 Room Air (MERI STARK APRN) EKG: EKG: Irregular rhythm, heart rate 43 bpm. No STEMI. (MERI STARK APRN) Radiology/Procedures: Radiology/Procedures: []EXAMINATION: Chest radiograph. VIEWS: Single AP view of the chest COMPARISON: 12/15/2018 INDICATION:86 years, Female, bilateral lower extremity swelling, history of CHF. FINDINGS: Heart is enlarged. Central pulmonary vasculature is prominent and slightly indistinct. Increased interstitial reticulations. Patchy peripheral bilateral perihilar and basilar opacities some of this may represent soft tissue summation. No pleural effusion or pneumothorax. No acute osseous process. IMPRESSION: Moderate cardiomegaly with findings suggestive of mild interstitial pulmonary edema. Superimposed infection is difficult to exclude. Electronically signed by: Manny Hoff DO (09/10/2021 1:49 PM) [facility] (MERI STARK APRN) Heart Score: C/O Chest Pain: No Risk Factors: Risk Factors: DM, Current or recent (<one month) smoker, HTN, HLP, family history of CAD, obesity. Risk Scores: Score 0 - 3: 2.5% MACE over next 6 weeks - Discharge Home Score 4 - 6: 20.3% MACE over next 6 weeks - Admit for Clinical Observation Score 7 - 10: 72.7% MACE over next 6 weeks - Early Invasive Strategies (MERI STARK APRN) Course & Med Decision Making: Course & Med Decision Making Pertinent Labs and Imaging studies reviewed. (See chart for details) [] 86-year-old male presents with bilateral, lower leg swelling. 3+, pitting edema on bilateral legs. History of CHF. Denies chest pain. Patient does report some shortness of breath with exertion. Patient currently sees Dr. Shannan Duke. Patient is currently taking metoprolol. EKG shows irregular rhythm, heart rate [address] elevation or depression. Patient and family are both poor historians. Discussed CODE STATUS with patient. Patient states that she is a full code and would want everything done if her heart or breathing was to stop. BNP 1039. BUN 3.6 ,creatinine 1.7. UA positive for nitrates. Patient given Rocephin. Chest x-ray shows moderate cardiomegaly with findings suggestive of mild interstitial pulmonary edema. I spoke with Dr. Sánchez who will be accepting patient at [facility]. I also consulted Dr. Sin, hospitalist at [facility]. Dr. Sin will be accepting patient for CHF exacerbation, symptomatic bradycardia. Discussed admission plan and transfer with patient and family. Patient is appreciative and agrees with transfer plan. (MERI STARK APRN) Course & Med Decision Making Did not see or evaluate patient. Did not discuss patient with [facility]. Generally agree with QUAL[facility] CONTROLLER's work-up and disposition per note. (RAUL SHIRLEY MD) Dragon Disclaimer: Micaela Disclaimer: This electronic medical record was generated, in whole or in part, using a voice recognition dictation system. (MERI STARK APRN) Departure Departure: Impression: Primary Impression: Symptomatic bradycardia Additional Impression: CHF exacerbation Qualified Codes: I50.9 - Heart failure, unspecified Disposition: 02 [facility] Condition: STABLE Referrals: SHANNAN DUKE (PCP) MERI STARK APRN Sep 10, 2021 14:43 RAUL SHIRLEY MD Sep 13, 2021 18:18
[2021-09-10 15:08] LABS: BASO # 0.1 x10^3/uL (0.0-0.2); BASO % 1 % (0-3); EOS # 0.3 x10^3/uL (0.0-0.7); EOS % 4 % (0-3); HEMATOCRIT 42.1 % (36.0-47.0); HEMOGLOBIN 13.8 g/dL (12.0-15.5); LYMPH # 1.6 x10^3/uL (1.0-4.8); LYMPH % 20 % (24-48); MEAN CORPUSCULAR HEMOGLOBIN 32 pg (25-35); MEAN CORPUSCULAR HGB CONC 33 g/dL (31-37); MEAN CORPUSCULAR VOLUME 96 fL (79-100); MONO # 0.9 x10^3/uL (0.0-1.1); MONO % 11 % (0-9); NEUT # 5.2 x10^3uL (1.8-7.7); NEUT % 65 % (31-73); PLATELET COUNT 208 x10^3/uL (140-400); RED BLOOD COUNT 4.37 x10^6/uL (3.50-5.40); RED CELL DISTRIBUTION WIDTH 14.6 % (11.5-14.5); WHITE BLOOD COUNT 8.1 x10^3/uL (4.0-11.0)
[2021-09-10 15:22] LABS: CALCIUM 9.6 mg/dL (8.5-10.1); CREATININE 1.7 mg/dL (0.6-1.0); GFR 28.4; POTASSIUM 4.5 mmol/L (3.5-5.1)
[2021-09-10 15:34] LABS: ALBUMIN 3.5 g/dL (3.4-5.0); ALBUMIN/GLOBULIN RATIO 1.2 (1.0-1.7); MAGNESIUM 2.1 mg/dL (1.8-2.4); TOTAL BILIRUBIN 0.7 mg/dL (0.2-1.0); TOTAL PROTEIN 6.5 g/dL (6.4-8.2)
[2021-09-10 18:24] LABS: BACTERIA,URINE MANY /HPF (0-FEW); CLARITY,URINE CLEAR; COLOR,URINE YELLOW; GLUCOSE,URINE NEG (NEG); NITRITE,URINE POS (NEG); RBC,URINE 0 /HPF (0-2); UROBILINOGEN,URINE 0.2 mg/dL (0.2 mg/dL)
[2021-09-10 18:25] LABS: SQUAMOUS EPITHELIAL CELL,UR MOD /LPF
--- NOTE | 2021-09-10 19:07 | EKG ---
[address] [address] Test Date: 2021-09-10 Test Time: 13:45:55 Pat Name: JODY COELLO Department: Room: Gender: F Putty Patcher: : [id number] Requested By: MERI STARK Order Number: [id number] Reading MD: Erlin Sánchez Measurements Intervals [place] Rate: 43 P: IA: QRS: -75 QRSD: 138 T: 14 QT: 476 QTc: 403 Interpretive Statements ATRIAL FIBRILLATION ABNORMAL LEFT AXIS DEVIATION LEFT ANTERIOR FASCICULAR BLOCK RIGHT BUNDLE BRANCH BLOCK BIFASCICULAR BLOCK ABNORMAL ECG Electronically Signed On 09-11-2021 9:02:52 CDT by Erlin Sánchez
[2021-09-10 19:30] VITALS: BP 133/95
[2021-09-10] MEDS ORDERED: cefTRIAXone SODIUM 1 GM VIAL ONE (20:11)
[2021-09-10] MEDS ORDERED: IV NORMAL SALINE 50ML 50 ML ONE (20:11)
== END 2021-09-10 20:28 | disposition short-term general hospital (02) ==
LOC: ER 12:44
DX: I11.0 Hypertensive heart disease with heart failure (principal); I50.9 Heart failure, unspecified; R00.1 Bradycardia, unspecified; R06.00 Dyspnea, unspecified; E78.00 Pure hypercholesterolemia, unspecified; Z88.5 Allergy status to narcotic agent
CPT/HCPCS: 36415; 71045; 80053; 81001; 83735; 83880; 84484; 85025; 87077; 87086; 87186; 93005; 96365; 96375; 99285; J0696; J2270